=== PATIENT | female | born 1970 ===

== ENCOUNTER 2016-10-13 10:16 | Observation (INO) | payer MEDICARE, OTHER ==
[2016-10-13 10:17] VITALS: BMI 52.1
--- NOTE | 2016-10-13 10:36 | ED PDOC ---
HPI: Chest Pain Time Seen by Provider: 10/13/16 10:29 Chief Complaint (Nursing): Chest Pain Chief Complaint (Provider): palpitations History Per: Patient History/Exam Limitations: no limitations Onset/Duration Of Symptoms: Hrs Additional Complaint(s): 46yo female complaining of several episodes of palpitations for 6 hours. Also reports left arm pain and pounding sensation in left ear. States she no longer takes blood thinners. She does not take aspirin. PMD Componegre ? - Risk Factors PE Risk Factors: Pos: Previous DVT, Previous PE Past Medical History Reviewed: Historical Data, Nursing Documentation, Vital Signs Vital Signs: Last Vital Signs Temp 98.0 F 10/16/16 08:16 Pulse 64 10/16/16 09:00 Resp 20 10/16/16 08:16 BP 124/77 10/16/16 08:16 Pulse Ox 97 10/16/16 08:16 - Medical History PMH: Anxiety, Asthma, Bronchitis, CVA (2 years ago, no residual defecits), Depression, Deep Vein Thrombosis, Gastritis, GERD, Pulmonary Embolism, TIA Denies: Arthritis, CHF, COPD, Diabetes, Hepatitis, HIV, HTN, Hypercholesterolemia, Hypothyroidism, Pneumonia, Chronic Kidney Disease, Rheumatoid Arthritis, Seizures, Sexually Transmitted Disease - Surgical History Surgical History: Cholecystectomy, Tonsillectomy - Family History Family History: States: Unknown Family Hx - Living Arrangements Living Arrangements: With Family - Social History Current smoker - smoking cessation education provided: No - Immunization History Hx Tetanus Toxoid Vaccination: No Hx Influenza Vaccination: No Hx Pneumococcal Vaccination: No - Home Medications Home Medications: Ambulatory Orders Medication Instructions Recorded Aspirin [Ecotrin] 81 mg PO HS 03/10/16 Baclofen [Lioresal] 10 mg PO HS 09/16/16 Dexlansoprazole [Dexilant] 60 mg PO Q48H 09/16/16 Escitalopram [Lexapro] 10 mg PO DAILY 09/16/16 traZODone [Desyrel] 50 mg PO HS 09/16/16 Acetaminophen/Butalbital/Caf 1 tab PO TID #60 tab 10/16/16 [Fioricet] Azithromycin [Zithromax] 500 mg PO DAILY #5 tab 10/16/16 - Allergies Allergies/Adverse Reactions: Allergies Allergy/AdvReac Type Severity Reaction Status Date / Time morphine AdvReac SHORTNESS Verified 09/16/16 12:42 OF BREATH Review of Systems ROS Statement: Except As Marked, All Systems Reviewed And Found Negative Cardiovascular: Positive for: Palpitations Musculoskeletal: Positive for: Arm Pain Physical Exam - Reviewed Nursing Documentation Reviewed: Yes Vital Signs Reviewed: Yes - Physical Exam Appears: Positive for: Well, Non-toxic, No Acute Distress Head Exam: Positive for: ATRAUMATIC, NORMAL INSPECTION, NORMOCEPHALIC Skin: Positive for: Warm, Dry Eye Exam: Positive for: EOMI, PERRL Cardiovascular/Chest: Positive for: Irregularly Irregular Respiratory: Positive for: Normal Breath Sounds. Negative for: Rales, Rhonchi, Wheezing Gastrointestinal/Abdominal: Positive for: Other (obese) Extremity: Positive for: Normal ROM Neurologic/Psych: Positive for: Alert, Oriented, Other (anxious) - Laboratory Results Result Diagrams: 10/14/16 05:30 10/14/16 05:30 - ECG ECG: Positive for: Interpreted By Me, Viewed By Me ECG Rhythm: Positive for: Atrial Fibrillation (/ flutter ), Nonspecific Changes Rate: 85 O2 Sat by Pulse Oximetry: 99 (RA) Pulse Ox Interpretation: Normal Medical Decision Making Medical Decision Making: EKG demonstrates new onset afib. labs were reviewed. Pt admitted obs to tele service for cardiac workup. Disposition - Clinical Impression Clinical Impression: Atrial fibrillation, Chest pain - Patient ED Disposition Is Patient to be Admitted: Yes Counseled Patient/Family Regarding: Studies Performed, Diagnosis - Disposition Disposition Time: 14:00 Condition: GOOD - Pt Status Changed To: Hospital Disposition Of: Observation - POA Present On Arrival: None
[2016-10-13 11:21] LABS: BASO % 0.8 % (0.0-2.0); EOS # 0.6 K/uL (0.0-0.7); EOS % 11.2 % (0.0-4.0); HEMATOCRIT 38.4 % (34.0-47.0); LYMPH # 1.4 K/uL (1.0-4.3); LYMPH % 25.7 % (20.0-40.0); MEAN CELL VOLUME 83.4 fl (81.0-99.0); MEAN CORPUSCULAR HEMOGLOBIN 26.9 pg (27.0-31.0); MEAN CORPUSCULAR HGB CONC 32.2 g/dL (33.0-37.0); MEAN PLATELET VOLUME 11.2 fl (7.2-11.7); MONO # 0.3 K/uL (0.0-0.8); MONO % 5.9 % (0.0-10.0); NEUT % 56.4 % (50.0-75.0); NRBC % 0.1 % (0.0-0.0); RED CELL DISTRIBUTION WIDTH 16.6 % (11.5-14.5); WHITE BLOOD COUNT 5.4 K/uL (4.8-10.8)
[2016-10-13 11:39] LABS: PARTIAL THROMBOPLASTIN TIME 25.4 SECONDS (23.3-32.5)
[2016-10-13 11:54] LABS: ALKALINE PHOSPHATASE 73 U/L (38-126); ALT/SGPT 45 U/L (9-52); AST/SGOT 36 U/L (14-36); BILIRUBIN,TOTAL 0.6 mg/dl (0.2-1.3); BLOOD UREA NITROGEN 17 mg/dl (7-17); CALCIUM 9.2 mg/dL (8.4-10.2); CARBON DIOXIDE 28 mmol/L (22-30); CHLORIDE 104 mmol/L (98-107); GFR AFRICAN-AMERICAN > 60; GLUCOSE,RANDOM 106 mg/dL (65-105); SODIUM 143 mmol/l (132-148); TOTAL PROTEIN 7.7 G/DL (6.3-8.2)
--- NOTE | 2016-10-13 12:41 | CT ---
PROCEDURE: CT HEAD WITHOUT CONTRAST. HISTORY: Aflutter, L headache and L facial numbness COMPARISON: Comparison is made to the previous study dated 03/10/2016 TECHNIQUE: Axial computed tomography images were obtained through the head/brain without intravenous contrast. Radiation dose: Total exam DLP = 869.9 mGy-cm. This CT exam was performed using one or more of the following dose reduction techniques: Automated exposure control, adjustment of the mA and/or kV according to patient size, and/or use of iterative reconstruction technique. FINDINGS: HEMORRHAGE: No intracranial hemorrhage. BRAIN: No mass effect or edema. No atrophy or chronic microvascular ischemic changes. VENTRICLES: Unremarkable. No hydrocephalus. CALVARIUM: Unremarkable. PARANASAL SINUSES: Unremarkable as visualized. No significant inflammatory changes. MASTOID AIR CELLS: Unremarkable as visualized. No inflammatory changes. OTHER FINDINGS: None. IMPRESSION: No evidence of acute pathology or significant interval change since the previous exam P
--- NOTE | 2016-10-13 13:31 | RAD ---
HISTORY: CP COMPARISON: No prior. FINDINGS: LUNGS: Mild bibasilar atelectasis. PLEURA: No significant pleural effusion identified, no pneumothorax apparent. CARDIOVASCULAR: Heart appears enlarged. OSSEOUS STRUCTURES: No significant abnormalities. VISUALIZED UPPER ABDOMEN: Normal. OTHER FINDINGS: None. IMPRESSION: Mild bibasilar atelectasis. Cardiomegaly.
[2016-10-13] MEDS ORDERED: Sodium Chloride 0.9% 50 ML IV ONE (19:05)
[2016-10-13] MEDS ORDERED: Iodixanol 320 MG/ML 100 ML BOTTLE IV ONE (19:05)
--- NOTE | 2016-10-13 19:41 | CARD ---
APPROVED REPORT EKG Measurement Heart [id number] HI P3 [id number] <Conclusion> sinus rhythm as clearly seen in limb lead III Nonspecific T wave abnormality Prolonged QT Abnormal ECG excessive baseline artefact to read correctly-recommend repeat
--- NOTE | 2016-10-13 21:02 | CT ---
EXAM: CT Angiography Chest With Intravenous Contrast CLINICAL HISTORY: 46 years old, female; Pain and signs and symptoms; Other: New onset a-fib; Chest pain; Type not specified; Additional info: RO pe. Chest pain TECHNIQUE: Axial computed tomographic angiography images of the chest with intravenous contrast using pulmonary embolism protocol. This CT exam was performed using one or more of the following dose reduction techniques: automated exposure control, adjustment of the mA and/or kV according to patient size, and/or use of iterative reconstruction technique. MIP reconstructed images were created and reviewed. Coronal and sagittal reformatted images were created and reviewed. CONTRAST: 90 mL of [id number] administered intravenously. EXAM DATE/TIME: 10/13/2016 1:25 PM COMPARISON: CT - ANGIO CHEST PE PROTOCOL 09/16/2016 3:24:55 PM FINDINGS: Artifacts: Motion artifact degrades image quality. Streak artifact from body habitus limits evaluation Heart, aorta and Pulmonary arteries: The heart is mildly enlarged. There is no pericardial effusion.There is no aneurysm or dissection. There are no central pulmonary emboli. Allowing for streak artifact and bolus timing, there are no peripheral emboli. Lungs and pleural spaces: Trachea and main bronchi are patent. Lungs are well-inflated. There is no focal consolidation. There are no effusions. There is minimal dependent atelectasis. Mediastinum: Esophagus is not optimally demonstrated. There is no pathologic mediastinal or hilar adenopathy. Thyroid: Thyroid is only partially imaged. Bones/joints: There are degenerative changes in the osseus structures. Soft tissues: unremarkable Lymph nodes: See above. Upper abdomen: There are no acute abnormalities in the visualized portion of the abdomen. IMPRESSION: Slightly limited by motion and body habitus, no aneurysm, dissection or was
[2016-10-14 07:09] LABS: HEMATOCRIT 37.5 % (34.0-47.0); MEAN CELL VOLUME 84.4 fl (81.0-99.0); MEAN CORPUSCULAR HEMOGLOBIN 26.7 pg (27.0-31.0); MEAN CORPUSCULAR HGB CONC 31.6 g/dL (33.0-37.0); RED CELL DISTRIBUTION WIDTH 17.4 % (11.5-14.5); WHITE BLOOD COUNT 8.1 K/uL (4.8-10.8)
[2016-10-14 07:16] LABS: ALKALINE PHOSPHATASE 69 U/L (38-126); ALT/SGPT 45 U/L (9-52); AST/SGOT 31 U/L (14-36); BILIRUBIN,TOTAL 0.6 mg/dl (0.2-1.3); BLOOD UREA NITROGEN 13 mg/dl (7-17); CALCIUM 8.5 mg/dL (8.4-10.2); CARBON DIOXIDE 24 mmol/L (22-30); CHLORIDE 105 mmol/L (98-107); CHOLESTEROL 161 mg/dL (0-199); GFR AFRICAN-AMERICAN > 60; GLUCOSE,RANDOM 102 mg/dL (65-105); SODIUM 142 mmol/l (132-148); TOTAL PROTEIN 7.4 G/DL (6.3-8.2)
[2016-10-14] MEDS: Enoxaparin 80 mg Syringe SC SCH (09:12)
[2016-10-14] MEDS: Pantoprazole 20 mg EC Tab PO SCH (09:13)
--- NOTE | 2016-10-14 09:21 | CP.PCM.CON ---
History of Present Illness - History of Present Illness History of Present Illness: Full Note Dictated. Atypical chest pain No evidence of A Fib (EKG has artefacts) Obesity H/O Pulm Embolism No evidence of ACS Past Patient History - Infectious Disease Hx of Infectious Diseases: None - Past Medical History & Family History Past Medical History?: Yes - Past Social History Smoking Status: Never Smoked - CARDIAC Hx Cardiac Disorders: Yes Hx Atrial Fibrillation: Yes Hx Congestive Heart Failure: No Hx Hypercholesterolemia: No Hx Hypertension: No - PULMONARY Hx Respiratory Disorders: Yes Hx Asthma: Yes Hx Bronchitis: Yes Hx Chronic Obstructive Pulmonary Disease (COPD): No Hx Pneumonia: No Hx Pulmonary Embolism: Yes - NEUROLOGICAL Hx Neurological Disorder: Yes HX Cerebrovascular Accident: Yes (2014) Hx Seizures: No Hx Transient Ischemic Attacks (TIA): Yes (2014) - HEENT Hx HEENT Problems: No - RENAL Hx Chronic Kidney Disease: No - ENDOCRINE/METABOLIC Hx Endocrine Disorders: No Hx Hypothyroidism: No - HEMATOLOGICAL/ONCOLOGICAL Hx Blood Disorders: No Hx AIDS: No Hx Human Immunodeficiency Virus (HIV): No - INTEGUMENTARY Hx Dermatological Problems: No - MUSCULOSKELETAL/RHEUMATOLOGICAL Hx Musculoskeletal Disorders: No Hx Arthritis: No Hx Falls: Yes Hx Rheumatoid Arthritis: No - GASTROINTESTINAL Hx Gastrointestinal Disorders: Yes Hx Gastritis: Yes - GENITOURINARY/GYNECOLOGICAL Hx Genitourinary Disorders: No Hx Sexually Transmitted Disorders: No - PSYCHIATRIC Hx Psychophysiologic Disorder: Yes Hx Anxiety: Yes Hx Depression: Yes Hx Substance Use: No - SURGICAL HISTORY Hx Surgeries: Yes Hx Cholecystectomy: Yes Hx Tonsillectomy: Yes - ANESTHESIA Hx Anesthesia: Yes Hx Malignant Hyperthermia: No Has any member of the family had a problem w/ anesthesia?: No Meds Allergies/Adverse Reactions: Allergies Allergy/AdvReac Type Severity Reaction Status Date / Time morphine AdvReac SHORTNESS Verified 09/16/16 12:42 OF BREATH - Medications Medications: Current Medications Acetaminophen (Tylenol 325mg Tab) 650 mg PO Q4 PRN PRN Reason: Headache Last Admin: 10/14/16 09:11 Dose: 650 mg Aspirin (Ecotrin) 81 mg PO DAILY [facility] Enoxaparin Sodium (Lovenox) 160 mg SC DAILY [facility] PRN Reason: Protocol Last Admin: 10/14/16 09:12 Dose: 160 mg Escitalopram Oxalate (Lexapro) 10 mg PO DAILY [facility] Last Admin: 10/14/16 09:12 Dose: 10 mg Pantoprazole Sodium (Protonix Ec Tab) 20 mg PO DAILY [facility] Last Admin: 10/14/16 09:13 Dose: 20 mg Trazodone HCl (Desyrel) 50 mg PO [facility] Last Admin: 10/13/16 21:03 Dose: 50 mg Results - Vital Signs Recent Vital Signs: Last Vital Signs Temp 98 F 10/14/16 08:00 Pulse 64 10/14/16 08:00 Resp 18 10/14/16 08:00 BP 137/83 10/14/16 08:00 Pulse Ox 95 10/14/16 08:00 - Labs Result Diagrams: 10/14/16 05:30 10/14/16 05:30 Labs: Laboratory Results - last 24 hr 10/13/16 10/14/16 20:15 05:30 WBC 8.1 RBC 4.44 Hgb 11.8 L Hct 37.5 MCV 84.4 MCH 26.7 L MCHC 31.6 L RDW 17.4 H Plt Count 174 Sodium 142 Potassium 4.0 Chloride 105 Carbon Dioxide 24 Anion Gap 18 BUN 13 Creatinine 0.4 L Est GFR ( Amer) > 60 Est GFR (Non-Af Amer) > 60 Random Glucose 102 Calcium 8.5 Total Bilirubin 0.6 AST 31 ALT 45 Alkaline Phosphatase 69 Troponin I < 0.0120 < 0.0120 Total Protein 7.4 Albumin 3.7 Globulin 3.7 Albumin/Globulin Ratio 1.0 Triglycerides 71 Cholesterol 161 LDL Cholesterol Direct 101 HDL Cholesterol 37 TSH 3rd Generation 3.60
--- NOTE | 2016-10-14 11:50 | CON ---
DATE: 10/14/2016 She is hospitalized under Dr. Hyman's care in room 416, bed 2. HISTORY OF PRESENT ILLNESS: This 46-year-old female came to the hospital complaining of high epigast judie discomfort while at rest and occasional skipped beats that abruptly woke her up from sleep. She denies any racing of her heart. Also gives history of having been treated for pulmonary embolism wit h oral anticoagulation in the form of warfarin about 3-4 years back. Has never sustained a DVT and d enies recent leg pains. Denies any hemoptysis. She has never been a smoker. Denies any history of hypertension or diabetes and denies taking oral contraceptives. She indicated that she has not had a ny children. PHYSICAL EXAMINATION: GENERAL: Shows a young, extremely obese female sitting up in bed, quite comfortable at this point, a lert, awake, coherent. VITAL SIGNS: Afebrile with a pulse rate of 68 beats per minute, regular and a blood pressure of 124/ 74 mmHg. NECK: Her jugular venous pressure was difficult to evaluate because of a short thick neck. EXTREMITIES: There was no pedal edema. Pedal pulses were well felt. Her extremities are warm, nail beds are pink. No central or peripheral cyanosis was evident. HEART: The apex was not palpable. There was a mild degree of tenderness in the high epigastric area . The first and second heart sounds were normal. There was no murmur, no gallop. LUNGS: No rales. ABDOMEN: Soft. Liver and spleen were not palpable. Her electrocardiogram in the Emergency Room showed baseline artifact, but P-waves could be clearly id entified indicating that the patient did not have atrial fibrillation when this electrocardiogram was recorded. No ST-T abnormalities or Q-waves were detected. LABORATORY DATA: Three sets of cardiac enzymes were negative for any evidence of myocyte injury. He r hemoglobin and hematocrit were 12.4 g and 38.4% respectively. Her WBC count and platelet counts we re within normal limits. Her BUN and creatinine were 17 and 0.5 mg %. Her electrolytes and liver pr ofile was quite normal. Her LDL cholesterol was 101, while the HDL cholesterol was 37 mg %. Her TSH was 3.6 units which is within normal limits. IMPRESSION: At this time is atypical chest pain with no evidence of acute coronary syndrome, a histo ry of pulmonary embolism. She is stable from cardiovascular point of view and may be allowed to retu rn home. Kyle Martino MD cc: 23 TT: 10/14/2016 11:49:39 Confirmation # [id number] Dictation # [id number]
--- NOTE | 2016-10-14 11:56 | CARD ---
APPROVED REPORT EXAM: Two-dimensional and M-mode echocardiogram with Doppler and color Doppler. Other Information Quality : AverageRhythm : NSR Technically limited study due to body habitus. INDICATION Atrial Fibrillation 2D DIMENSIONS IVSd0.60 (0.7-1.1cm)LVDd4.82 (3.9-5.9cm) LVOT Diameter1.96 (1.8-2.4cm)PWd0.81 (0.7-1.1cm) IVSs1.29 (0.8-1.2cm)LVDs4.16 (2.5-4.0cm) FS (%) 13.7 %PWs1.22 (0.8-1.2cm) M-Mode DIMENSIONS Left Atrium (MM)3.53 (2.5-4.0cm)IVSd1.14 (0.7-1.1cm) Aortic Root3.42 (2.2-3.7cm)LVDd5.29 (4.0-5.6cm) Aortic Cusp Exc.2.72 (1.5-2.0cm)PWd0.92 (0.7-1.1cm) IVSs1.51 cmFS (%) 56 % LVDs2.32 (2.0-3.8cm)PWs1.36 cm Mitral Valve MV E Yflzvfhr95.0cm/sMV DECEL [id number] A Kvlixqjz45.6cm/s MV AMS05qrH/A ratio1.4MVA (PHT)3.27cm2 TDI E/Lateral E'0.0E/Medial E'0.0 LEFT VENTRICLE The left ventricle is normal size. There is normal left ventricular wall thickness. The left ventricular function is normal. The left ventricular ejection fraction is - 55-60%. There is normal LV segmental wall motion. The left ventricular diastolic function is normal. No left ventricle thrombus noted on this study. There is no ventricular septal defect visualized. There is no left ventricular aneurysm. There is no mass noted in the left ventricle. RIGHT VENTRICLE The right ventricle is normal size. There is normal right ventricular wall thickness. The right ventricular systolic function is normal. ATRIA The left atrium size is normal. There is no thrombus suspected in the left atrium. The right atrium size is normal. The interatrial septum is intact with no evidence for an atrial septal defect. AORTIC VALVE The aortic valve is normal in structure and function. No aortic regurgitation is present. There is no aortic valvular stenosis. MITRAL VALVE The mitral valve is normal in structure and function. There is no evidence of mitral valve prolapse. There is no mitral valve stenosis. Mitral regurgitation is trace. TRICUSPID VALVE The tricuspid valve is normal in structure and function. There is no tricuspid valve regurgitation noted. There is no tricuspid valve prolapse or vegetation. There is no tricuspid valve stenosis. PULMONIC VALVE The pulmonic valve is not well visualized. doppler studies of the PA were not performed GREAT VESSELS The aortic root is normal in size. The IVC was not well visualized. PERICARDIAL EFFUSION The pericardium appears normal. There is no pleural effusion. <Conclusion> The study is only of fair quality. The left ventricle is normal in size and wall thickness. The left ventricular function is normal. The left ventricular ejection fraction is - 55-60%. The left atrium, right ventricle and right atrium are normal in size. The mitral, aortic and tricuspid valves are normal. There is trace mitral regurgitation.
--- NOTE | 2016-10-14 16:05 | US ---
PROCEDURE: Duplex ultrasound of the carotid and vertebral arteries. HISTORY: Headache COMPARISON: None available. TECHNIQUE: Grayscale and duplex Doppler evaluation of the cervical carotid and vertebral arteries were performed. The common carotid, carotid bifurcations and cervical ICA and proximal ECA were evaluated. The vertebral arteries were evaluated for gross patency and direction. FINDINGS: RIGHT CAROTID ARTERIES: Common Carotid Artery: Normal. Maximal flow velocity of 98.4 cm/s. Carotid Bifurcation: Normal. Internal Carotid Artery:Normal. Maximal flow velocity of 71.0 cm/s. External Carotid Artery (proximal branches): Normal. Maximal flow velocity of 96.3 cm/s. ICA/CCA Ratio: 0.7 LEFT CAROTID ARTERIES: Common Carotid Artery: Normal. Maximal flow velocity of 137.1 cm/s. Carotid Bifurcation: Normal. Internal Carotid Artery:Normal. Maximal flow velocity of 83.3 cm/s. External Carotid Artery (proximal branches): Normal. Maximal flow velocity of 83.3 cm/s. ICA/CCA Ratio: 0.6 VERTEBRAL ARTERIES: Right Vertebral Artery: Patent. Antegrade flow. Left Vertebral Artery: Patent. Antegrade flow. OTHER FINDINGS: None. IMPRESSION: No evidence of hemodynamically significant stenosis.
[2016-10-14] MEDS ORDERED: Iodixanol 320 MG/ML 100 ML BOTTLE IV ONE ×2 (17:46→18:05)
[2016-10-14] MEDS ORDERED: Sodium Chloride 0.9% 50 ML IV ONE (17:46)
--- NOTE | 2016-10-14 22:41 | CP.PCM.HP ---
History of Present Illness - History of Present Illness History of Present Illness: A 46 yr old femALE with hx of depression,morbid obesity,old PE not on blood thinners came with c\o chest pain,mid strernal\epigastria with left arm discomfort .hx of similar episodes in past.asocited with palpitation,initial EKG -SUSPICIOUS OF AFIB. also currently c\o headaches back of head mostly.random, no specific agg factors , not relieving with regular tylenol she was diagnosed with sleep apnea[mild] not using CPAP. headaches going for a 2 weeks now.last seen eyedoctor was 3 months ago-was normal. Present on Admission - Present on Admission Any Indicators Present on Admission: No Review of Systems - Constitutional Constitutional: Fatigue, Sleep Apnea. absent: Fever - EENT Eyes: absent: Blurred Vision, Sees Flashes, Other Visual Disturbances Ears: Tinnitus Nose/Mouth/Throat: Post Nasal Drip, Sore Throat - Cardiovascular Cardiovascular: Chest Pain, Palpitations. absent: Diaphoresis, Leg Edema - Respiratory Respiratory: absent: Cough, Wheezing - Gastrointestinal Gastrointestinal: Heartburn. absent: Nausea, Vomiting - Genitourinary Genitourinary: absent: Dysuria, Urinary Frequency - Psychiatric Psychiatric: Anxiety, Depression Past Patient History - Infectious Disease Hx of Infectious Diseases: None - Past Medical History & Family History Past Medical History?: Yes - Past Social History Smoking Status: Never Smoked - CARDIAC Hx Cardiac Disorders: Yes Hx Atrial Fibrillation: Yes Hx Congestive Heart Failure: No Hx Hypercholesterolemia: No Hx Hypertension: No - PULMONARY Hx Respiratory Disorders: Yes Hx Asthma: Yes Hx Bronchitis: Yes Hx Chronic Obstructive Pulmonary Disease (COPD): No Hx Pneumonia: No Hx Pulmonary Embolism: Yes - NEUROLOGICAL Hx Neurological Disorder: Yes HX Cerebrovascular Accident: Yes (2015) Hx Seizures: No Hx Transient Ischemic Attacks (TIA): Yes (2014) - HEENT Hx HEENT Problems: No - RENAL Hx Chronic Kidney Disease: No - ENDOCRINE/METABOLIC Hx Endocrine Disorders: No Hx Hypothyroidism: No - HEMATOLOGICAL/ONCOLOGICAL Hx Blood Disorders: No Hx AIDS: No Hx Human Immunodeficiency Virus (HIV): No - INTEGUMENTARY Hx Dermatological Problems: No - MUSCULOSKELETAL/RHEUMATOLOGICAL Hx Musculoskeletal Disorders: No Hx Arthritis: No Hx Falls: Yes Hx Rheumatoid Arthritis: No - GASTROINTESTINAL Hx Gastrointestinal Disorders: Yes Hx Gastritis: Yes - GENITOURINARY/GYNECOLOGICAL Hx Genitourinary Disorders: No Hx Sexually Transmitted Disorders: No - PSYCHIATRIC Hx Psychophysiologic Disorder: Yes Hx Anxiety: Yes Hx Depression: Yes Hx Substance Use: No - SURGICAL HISTORY Hx Surgeries: Yes Hx Cholecystectomy: Yes Hx Tonsillectomy: Yes - ANESTHESIA Hx Anesthesia: Yes Hx Malignant Hyperthermia: No Has any member of the family had a problem w/ anesthesia?: No Meds Allergies/Adverse Reactions: Allergies Allergy/AdvReac Type Severity Reaction Status Date / Time morphine AdvReac SHORTNESS Verified 09/16/16 12:42 OF BREATH Physical Exam - Constitutional Appears: No Acute Distress Additional comments: obese - Head Exam Head Exam: NORMAL INSPECTION - Eye Exam Eye Exam: EOMI, Normal appearance, PERRL - ENT Exam ENT Exam: Normal Exam - Neck Exam Neck exam: Negative for: Lymphadenopathy Additional comments: tight oropharynx - Respiratory Exam Respiratory Exam: Clear to Auscultation Bilateral, NORMAL BREATHING PATTERN - Cardiovascular Exam Cardiovascular Exam: REGULAR RHYTHM, +S1, +S2 - GI/Abdominal Exam GI & Abdominal Exam: Normal Bowel Sounds, Soft. absent: Tenderness - Extremities Exam Extremities exam: Positive for: pedal pulses present. Negative for: pedal edema - Neurological Exam Neurological exam: Alert, Normal Gait, Oriented x3 - Psychiatric Exam Psychiatric exam: Normal Affect - Skin Skin Exam: Normal Color Results - Vital Signs Recent Vital Signs: Last Vital Signs Temp 98.6 F 10/14/16 20:32 Pulse 67 10/14/16 20:32 Resp 20 10/14/16 20:32 BP 108/77 10/14/16 20:32 Pulse Ox 96 10/14/16 20:32 - Labs Result Diagrams: 10/14/16 05:30 10/14/16 05:30 Labs: Laboratory Results - last 24 hr 10/14/16 10/14/16 05:30 08:25 WBC 8.1 RBC 4.44 Hgb 11.8 L Hct 37.5 MCV 84.4 MCH 26.7 L MCHC 31.6 L RDW 17.4 H Plt Count 174 Sodium 142 Potassium 4.0 Chloride 105 Carbon Dioxide 24 Anion Gap 18 BUN 13 Creatinine 0.4 L Est GFR ( Amer) > 60 Est GFR (Non-Af Amer) > 60 Random Glucose 102 Hemoglobin A1c 6.2 Calcium 8.5 Total Bilirubin 0.6 AST 31 ALT 45 Alkaline Phosphatase 69 Troponin I < 0.0120 Total Protein 7.4 Albumin 3.7 Globulin 3.7 Albumin/Globulin Ratio 1.0 Triglycerides 71 Cholesterol 161 LDL Cholesterol Direct 101 HDL Cholesterol 37 TSH 3rd Generation 3.60 - EKG Data EKG Interpreted by: Other - Imaging and Cardiology CT scan - chest Status: Report reviewed by me CT scan - head Status: Report reviewed by me Assessment & Plan (1) Chest pain Status: Acute (2) Head ache Status: Acute (3) Palpitations Status: Acute (4) Gastro-esophageal reflux disease without esophagitis Status: Chronic (5) URTI (acute upper respiratory infection) Status: Acute - Assessment and Plan (Free Text) Assessment: 1. trops\ekg-negative so far 2. possible artifact-no afib as per cardiology continue ASA 3.HEADACHE-LIKLEY SLEEP apnea related 4. for URT-zpack 5.pain meds Decision To Admit - Pt Status Changed To: Hospital Disposition Of: Inpatient - Admit Certification Admit to Inpatient:: After my assessment, the patient will require hospitalization for at least two midnights. This is because of the severity of symptoms shown, intensity of services needed, and/or the medical risk in this patient being treated as an outpatient. - . Bed Request Type: Telemetry Admitting Physician: Sammie Hyman
[2016-10-15] MEDS: Enoxaparin 80 mg Syringe SC SCH (09:15)
[2016-10-15] MEDS: Pantoprazole 20 mg EC Tab PO SCH (09:16)
--- NOTE | 2016-10-15 11:18 | CT ---
PROCEDURE: CT Angiography of the Brain. HISTORY: Headache COMPARISON: None available. TECHNIQUE: CT angiography of the intracranial arteries was performed. Coronal and sagittal maximum intensity projection reformated images were generated. This CT exam was performed using one or more of the following dose reduction techniques: Automated exposure control, adjustment of the mA and/or kV according to patient size, and/or use of iterative reconstruction technique. FINDINGS: INTERNAL CEREBRAL ARTERIES: Normal in caliber. The skull base, petrous, cavernous and supraclinoid segments are bilaterally widely patient. ANTERIOR CEREBRAL ARTERIES: Normal in caliber. The right A1 segment is hypoplastic, an anatomic variant. The left A1 and both A2 segments are widely patent. Smaller distal branches unremarkable, as visualized. MIDDLE CEREBRAL ARTERIES: Normal in caliber. M1 and M2 segments are widely patent. Perisylvian branches grossly symmetric. POSTERIOR CIRCULATION: Basilar Artery: Normal. Distal Vertebral Arteries: Normal. The left vertebral artery is dominant intracranially. Posterior Cerebral Arteries: Normal. Posterior Inferior Cerebellar Arteries: Normal. ANEURYSM/ VASCULAR MALFORMATIONS: None. OTHER FINDINGS: None. IMPRESSION: No evidence of saccular aneurysm, definite significant stenosis, vasculitis or dissection.
--- NOTE | 2016-10-15 22:30 | CP.PCM.PN ---
Subjective - Date & Time of Evaluation Date of Evaluation: 10/15/16 Time of Evaluation: 15:00 - Subjective Subjective: still c\o headaches ,notes she is worried . labs noted. chest pain resolved. [id number]-7.2, tsh-normal. Objective - Vital Signs/Intake and Output Vital Signs (last 24 hours): Temp Pulse Resp BP Pulse Ox 98.4 F 76 20 130/82 97 10/15/16 20:20 10/15/16 20:20 10/15/16 20:20 10/15/16 20:20 10/15/16 20:20 - Medications Medications: Current Medications Acetaminophen (Tylenol 325mg Tab) 650 mg PO Q4 PRN PRN Reason: Headache Last Admin: 10/14/16 09:11 Dose: 650 mg Aspirin (Ecotrin) 81 mg PO DAILY [facility] Last Admin: 10/15/16 09:16 Dose: 81 mg Azithromycin (Zithromax) 500 mg PO DAILY [facility] Last Admin: 10/15/16 09:16 Dose: 500 mg Enoxaparin Sodium (Lovenox) 160 mg SC DAILY [facility] PRN Reason: Protocol Last Admin: 10/15/16 09:15 Dose: 160 mg Escitalopram Oxalate (Lexapro) 10 mg PO DAILY [facility] Last Admin: 10/15/16 09:17 Dose: 10 mg Meclizine HCl (Antivert) 12.5 mg PO BID [facility] Last Admin: 10/15/16 17:16 Dose: 12.5 mg Pantoprazole Sodium (Protonix Ec Tab) 20 mg PO DAILY [facility] Last Admin: 10/15/16 09:16 Dose: 20 mg Trazodone HCl (Desyrel) 50 mg PO HS [facility] Last Admin: 10/15/16 21:38 Dose: 50 mg - Labs Labs: 10/14/16 05:30 10/14/16 05:30 PT 10.3 SECONDS (9.6-11.2) 10/13/16 11:07 INR 0.99 (0.92-1.08) 10/13/16 11:07 APTT 25.4 SECONDS (23.3-32.5) 10/13/16 11:07 Assessment and Plan (1) Chest pain Status: Resolved (2) Head ache Status: Acute (3) Palpitations Status: Resolved (4) Gastro-esophageal reflux disease without esophagitis Status: Chronic (5) URTI (acute upper respiratory infection) Status: Acute - Assessment and Plan (Free Text) Plan: 1. continue all meds 2.call neuroconsult 3. echo\ carotid us-wnl. 4.advise to see ENT\OPTHMOLOGY out pt.
[2016-10-16 05:16] VITALS: RESP 20
--- NOTE | 2016-10-16 08:09 | CON ---
DATE: 10/15/2016 CHIEF COMPLAINT: Headache. HISTORY OF PRESENT ILLNESS: A 46-year-old woman with history of anxiety, asthma and bronchitis, hist ory of DVT in the past and gastritis who has been having several episodes of palpitations and felt le ft arm pain and pounding sensation in the left ear. She takes aspirin and was again evaluated by car diology who recommended that her atypical chest pain showed no evidence of coronary syndrome, and fro m a cardiovascular standpoint, she was stable. Currently, we got consulted for headaches. She says the headaches usually start in the back of the neck radiating up to the back of the head, diffuse pre ssure type without any auras. Currently, no paresthesias with the headaches. No nausea. Her headac he is much better. She says it has resolved. She says when she gets stressed out she gets these hea daches. She on average gets headaches intermittently, but not more than 1 a month. She is on aspiri n 81 mg p.o. daily for stroke prevention. She is on Lexapro for her underlying anxiety, depression. PAST MEDICAL HISTORY: Depression, anxiety, history of arthritis, overweight, history of DVT in the p ast. FAMILY HISTORY: Noncontributory. SOCIAL HISTORY: No illicit drug use, smoking, or ETOH abuse. ALLERGIES: ALLERGIC TO MORPHINE. SOCIAL HISTORY: No illicit drug use, smoking, or ETOH abuse. MEDICATIONS: Reviewed via nurse's reconciliation sheet. REVIEW OF SYSTEMS: A 14-point review of systems is negative except for the HPI. PHYSICAL EXAMINATION: VITAL SIGNS: Temperature 98.1, pulse rate 71, blood pressure 109/74, respiratory rate 20, oxygen 97% on room air. GENERAL: The patient is sitting up in bed. She is obese. HEENT: Atraumatic, normocephalic. PERRLA. Extraocular muscles intact. NECK: Supple, no JVD, no adenopathy noted. LUNGS: Clear to auscultation. No adventitious sounds. HEART: S1, S2, normal rate and rhythm. No murmurs, rubs, or gallops. ABDOMEN: Soft, nontender, nondistended. Bowel sounds present. EXTREMITIES: No clubbing, no cyanosis. Peripheral pulses 2+ felt bilaterally. NEUROLOGIC: The patient is alert, oriented to person, place, month and year. Speech is fluent, with out any errors. Has a flat affect and mildly anxious. Cranial nerves II through XII are intact. MOTOR: Moves all extremities equally. No pronator drift seen. SENSORY: Light touch, pinprick, proprioception, and vibration. DTRs are 2+ throughout and 1 at the ankles. COORDINATION: [id number] intact. GAIT: Deferred for now. LABORATORIES: Sodium is 142, potassium 4, chloride of 105, carbon dioxide 24, BUN of 13, creatinine 0.4 and random glucose 128. ASSESSMENT AND PLAN: This is a 46-year-old obese woman with past medical history of anxiety, depress ion, history of previous DVT, history of asthma, anxiety, history of DVT apparently, who came in for palpitations and headache and left ear pounding sensation. There was a question rodolfo whether there w as AFib on EKG, but according to cardiology, there was no AFib and stable from a cardiovascular stand point in terms of atypical chest pain. I feel like her headaches are more tension base headaches rat her than migraine, likely from anxiety. At this time, would recommend: 1. Coenzyme Q10 400 mg p.o. b.i.d., which will help with anxiety, as well as headache prevention. 2. Riboflavin 400 mg p.o. daily for headache prevention. 3. Fioricet 1 tab p.o. q. 4 hours at acute onset of headache. We will avoid any other medicinal pre ventative agents for now. She is clinically stable from my standpoint. Can follow up as an outpatie nt. Thank you for this consult. Tung Alanis MD cc: [phone] TT: 10/15/2016 19:27:31 Confirmation # [id number] Dictation # [id number] mn 10/15/2016 19:19:46
[2016-10-16 08:17] VITALS: BP 124/77; TEMP 98
[2016-10-16] MEDS: Enoxaparin 80 mg Syringe SC SCH (08:53)
[2016-10-16] MEDS: Pantoprazole 20 mg EC Tab PO SCH (08:53)
--- NOTE | 2016-10-16 09:53 | CP.PCM.PCO ---
Assessment/Plan - Assessment/Plan Plan (Free Text): Patient seen and examined Has been seen and evaluated by Neurology, Dr Alanis for her tension headaches. Medically cleared for discharge home Patient to follow up with her PMD re Hgb a1c 6.2, will need repeat in 3 months Patient also has appointment at the mental health clinic where she follows up for her anxiety/depression rx for fioricet provided for headaches Discussed with Dr Hyman - Problems Patient Problems: Problem List (Active/Current) Problem Status Priority Diagnosed Code Head ache Acute R51 Pre-diabetes Acute R73.03 URTI (acute upper respiratory infection) Acute J06.9 Gastro-esophageal reflux disease without esophagitis Chronic K21.9 Palpitations Resolved R00.2
--- NOTE | 2016-10-16 20:52 | CP.PCM.DIS ---
Provider - Provider Date of Admission: 10/13/16 13:24 Attending physician: Sammie Hyman MD Time Spent in preparation of Discharge (in minutes): 30 Diagnosis - Discharge Diagnosis (1) Chest pain Status: Resolved (2) Head ache Status: Acute (3) Palpitations Status: Resolved (4) Gastro-esophageal reflux disease without esophagitis Status: Chronic (5) URTI (acute upper respiratory infection) Status: Acute (6) Pre-diabetes Status: Acute Hospital Course - Lab Results Lab Results: Most Recent Lab Values WBC 8.1 K/uL (4.8-10.8) 10/14/16 05:30 RBC 4.44 Mil/uL (3.80-5.20) 10/14/16 05:30 Hgb 11.8 g/dL (12.0-16.0) L 10/14/16 05:30 Hct 37.5 % (34.0-47.0) 10/14/16 05:30 MCV 84.4 fl (81.0-99.0) 10/14/16 05:30 MCH 26.7 pg (27.0-31.0) L 10/14/16 05:30 MCHC 31.6 g/dL (33.0-37.0) L 10/14/16 05:30 RDW 17.4 % (11.5-14.5) H 10/14/16 05:30 Plt Count 174 K/uL (130-400) 10/14/16 05:30 MPV 11.2 fl (7.2-11.7) 10/13/16 11:07 Neut % (Auto) 56.4 % (50.0-75.0) 10/13/16 11:07 Lymph % (Auto) 25.7 % (20.0-40.0) 10/13/16 11:07 Hart % (Auto) 5.9 % (0.0-10.0) 10/13/16 11:07 Eos % (Auto) 11.2 % (0.0-4.0) H 10/13/16 11:07 Baso % (Auto) 0.8 % (0.0-2.0) 10/13/16 11:07 Neut # 3.0 K/uL (1.8-7.0) 10/13/16 11:07 Lymph # 1.4 K/uL (1.0-4.3) 10/13/16 11:07 Hart # 0.3 K/uL (0.0-0.8) 10/13/16 11:07 Eos # 0.6 K/uL (0.0-0.7) 10/13/16 11:07 Baso # 0.0 K/uL (0.0-0.2) 10/13/16 11:07 PT 10.3 SECONDS (9.6-11.2) 10/13/16 11:07 INR 0.99 (0.92-1.08) 10/13/16 11:07 APTT 25.4 SECONDS (23.3-32.5) 10/13/16 11:07 Sodium 142 mmol/l (132-148) 10/14/16 05:30 Potassium 4.0 MMOL/L (3.6-5.0) 10/14/16 05:30 Chloride 105 mmol/L (98-107) 10/14/16 05:30 Carbon Dioxide 24 mmol/L (22-30) 10/14/16 05:30 Anion Gap 18 (10-20) 10/14/16 05:30 BUN 13 mg/dl (7-17) 10/14/16 05:30 Creatinine 0.4 mg/dL (0.7-1.2) L 10/14/16 05:30 Est GFR ( Amer) > 60 10/14/16 05:30 Est GFR (Non-Af Amer) > 60 10/14/16 05:30 POC Glucose (mg/dL) 128 mg/dL (65-110) H 10/15/16 13:24 Random Glucose 102 mg/dL (65-105) 10/14/16 05:30 Hemoglobin A1c 6.2 % (4.2-6.5) 10/14/16 08:25 Calcium 8.5 mg/dL (8.4-10.2) 10/14/16 05:30 Total Bilirubin 0.6 mg/dl (0.2-1.3) 10/14/16 05:30 AST 31 U/L (14-36) 10/14/16 05:30 ALT 45 U/L (9-52) 10/14/16 05:30 Alkaline Phosphatase 69 U/L (38-126) 10/14/16 05:30 Troponin I < 0.0120 ng/mL (0.00-0.120) 10/14/16 05:30 Total Protein 7.4 G/DL (6.3-8.2) 10/14/16 05:30 Albumin 3.7 g/dL (3.5-5.0) 10/14/16 05:30 Globulin 3.7 gm/dL (2.2-3.9) 10/14/16 05:30 Albumin/Globulin Ratio 1.0 (1.0-2.1) 10/14/16 05:30 Triglycerides 71 mg/DL (0-149) 10/14/16 05:30 Cholesterol 161 mg/dL (0-199) 10/14/16 05:30 LDL Cholesterol Direct 101 mg/dL (0-129) 10/14/16 05:30 HDL Cholesterol 37 MG/DL (30-70) 10/14/16 05:30 TSH 3rd Generation 3.60 mIU/ML (0.46-4.68) 10/14/16 05:30 - Hospital Course Hospital Course: uneventful.feels better, headaches resolving. work up negative. Discharge Exam - Head Exam Head Exam: NORMAL INSPECTION - Additional Findings Additional findings: Appears: No Acute Distress Additional comments: obese - Head Exam Head Exam: NORMAL INSPECTION - Eye Exam Eye Exam: EOMI, Normal appearance, PERRL - ENT Exam ENT Exam: Normal Exam - Neck Exam Neck exam: Negative for: Lymphadenopathy Additional comments: tight oropharynx - Respiratory Exam Respiratory Exam: Clear to Auscultation Bilateral, NORMAL BREATHING PATTERN - Cardiovascular Exam Cardiovascular Exam: REGULAR RHYTHM, +S1, +S2 - GI/Abdominal Exam GI & Abdominal Exam: Normal Bowel Sounds, Soft. absent: Tenderness - Extremities Exam Extremities exam: Positive for: pedal pulses present. Negative for: pedal edema - Neurological Exam Neurological exam: Alert, Normal Gait, Oriented x3 - Psychiatric Exam Psychiatric exam: Normal Affect - Skin Skin Exam: Normal Color Discharge Plan - Discharge Medications Prescriptions: Acetaminophen/Butalbital/Caf [Fioricet] 1 tab PO TID #60 tab Azithromycin [Zithromax] 500 mg PO DAILY #5 tab - Follow Up Plan Condition: GOOD Disposition: HOME/ ROUTINE Instructions: Atrial Fibrillation (DC), Chest Pain (DC)
[2016-10-17 16:07] VITALS: PULSE 85; O2SAT 99
== END 2016-10-16 11:15 | disposition home or self-care (01) ==
LOC: H.ER 10:16 → H.ERHOLD 13:24 → INTOOBSV 13:24 → H.TEL 16:33
PROVIDERS: ADMIT Internal Medicine; ATTEND Internal Medicine
DX: R07.89 Other chest pain (principal); Z68.43 Body mass index [BMI] 50.0-59.9, adult; J06.9 Acute upper respiratory infection, unspecified; G44.209 Tension-type headache, unspecified, not intractable; R00.2 Palpitations; K21.9 Gastro-esophageal reflux disease without esophagitis; R73.03 Prediabetes; F32.9 Major depressive disorder, single episode, unspecified; F41.9 Anxiety disorder, unspecified; M19.90 Unspecified osteoarthritis, unspecified site; E66.01 Morbid (severe) obesity due to excess calories; J45.909 Unspecified asthma, uncomplicated; Z86.711 Personal history of pulmonary embolism; Z79.01 Long term (current) use of anticoagulants
CPT/HCPCS: 36415; 70450; 70496; 71010; 71275; 80053; 80061; 81025; 82948; 83036; 84443; 84484; 85025; 85027; 85610; 85730; 93005; 93306; 93880; 99285; G0378; J1650; J1885; Q9967

== ENCOUNTER 2016-10-31 14:01 | Emergency (ER) | payer MEDICARE, OTHER ==
[2016-10-31 14:02] VITALS: BMI 52.1
[2016-10-31 14:12] VITALS: BP 157/89; PULSE 71; RESP 21; TEMP 98.3; O2SAT 98
[2016-10-31 15:16] LABS: BASO # 0.1 K/uL (0.0-0.2); BASO % 0.9 % (0.0-2.0); EOS # 0.7 K/uL (0.0-0.7); EOS % 10.5 % (0.0-4.0); HEMATOCRIT 37.1 % (34.0-47.0); LYMPH # 1.5 K/uL (1.0-4.3); LYMPH % 22.4 % (20.0-40.0); MEAN CORPUSCULAR HGB CONC 32.1 g/dL (33.0-37.0); MEAN PLATELET VOLUME 11.4 fl (7.2-11.7); MONO # 0.5 K/uL (0.0-0.8); MONO % 7.9 % (0.0-10.0); NEUT # 3.8 K/uL (1.8-7.0); NEUT % 58.3 % (50.0-75.0); RED CELL DISTRIBUTION WIDTH 16.6 % (11.5-14.5); WHITE BLOOD COUNT 6.5 K/uL (4.8-10.8)
[2016-10-31 15:32] LABS: ALB/GLOB RATIO 0.9 (1.0-2.1); ALKALINE PHOSPHATASE 67 U/L (38-126); ALT/SGPT 44 U/L (9-52); AST/SGOT 47 U/L (14-36); BILIRUBIN,TOTAL 0.7 mg/dl (0.2-1.3); BLOOD UREA NITROGEN 17 mg/dl (7-17); CALCIUM 9.1 mg/dL (8.4-10.2); CARBON DIOXIDE 26 mmol/L (22-30); CHLORIDE 103 mmol/L (98-107); GFR AFRICAN-AMERICAN > 60; GLUCOSE,RANDOM 85 mg/dL (65-105); POTASSIUM 4.1 MMOL/L (3.6-5.0); SODIUM 138 mmol/l (132-148)
--- NOTE | 2016-10-31 16:49 | ED PDOC ---
HPI: Chest Pain Time Seen by Provider: 10/31/16 14:37 Chief Complaint (Nursing): Chest Pain Chief Complaint (Provider): chest pain History Per: Patient History/Exam Limitations: no limitations Additional Complaint(s): 46yo F in ED for eval of left sided CP-noted since yesterday with radiation to left shoulder and neck with associated dizziness and anxiety. pt was admitted on 10/13/16- had negative CTA, carodid US, Chest CT, xray of chest and normal labs. Pt had MD Baldemar-cardiology and MD Zeke nuero consult-cleared by both , dx with anxiety. Pt presented to ED on 10/13/16 with same symptoms. denies nasuea vomiting fever or chlls denies ab pain or back pain. Past Medical History Reviewed: Historical Data, Nursing Documentation, Vital Signs Vital Signs: Last Vital Signs Temp 98.3 F 10/31/16 14:07 Pulse 71 10/31/16 14:07 Resp 21 10/31/16 14:07 BP 157/89 H 10/31/16 14:07 Pulse Ox 98 10/31/16 14:07 - Medical History PMH: Anxiety, Asthma, Atrial Fibrillation, Bronchitis, CVA (2 years ago, no residual defecits), Depression, Deep Vein Thrombosis, Gastritis, GERD, Pulmonary Embolism, TIA Denies: Arthritis, CHF, COPD, Diabetes, Hepatitis, HIV, HTN, Hypercholesterolemia, Hypothyroidism, Pneumonia, Chronic Kidney Disease, Rheumatoid Arthritis, Seizures, Sexually Transmitted Disease - Surgical History Surgical History: Cholecystectomy, Tonsillectomy - Family History Family History: States: Unknown Family Hx - Immunization History Hx Tetanus Toxoid Vaccination: No Hx Influenza Vaccination: No Hx Pneumococcal Vaccination: No - Home Medications Home Medications: Ambulatory Orders Medication Instructions Recorded Aspirin [Ecotrin] 81 mg PO HS 03/10/16 Baclofen [Lioresal] 10 mg PO HS 09/16/16 Dexlansoprazole [Dexilant] 60 mg PO DAILY 09/16/16 Escitalopram [Lexapro] 10 mg PO DAILY 09/16/16 traZODone [Desyrel] 50 mg PO HS 09/16/16 Acetaminophen/Butalbital/Caf 1 tab PO TID #60 tab 10/16/16 [Fioricet] - Allergies Allergies/Adverse Reactions: Allergies Allergy/AdvReac Type Severity Reaction Status Date / Time morphine AdvReac SHORTNESS Verified 10/31/16 14:07 OF BREATH BRIAN Risk Score for UA/NSTEMI - BRIAN Risk Score Age > 64: NO 3 or more CAD Risk Factors: NO Known CAD (Stenosis greater than 50%): NO Aspirin use in past 7 days: NO Severe Angina: NO EKG ST changes greater than 0.5mm: NO Positive Cardiac Marker: NO BRIAN Score: 0 Risk %: 5% Curb-65 Severity Score - CURB-65 Severity Score Confusion: No Bun >19mg/dl (>7mmol/L): No Respiratory Rate greater than/equal to 30: No Systolic BP <90 or Diastolic BP less than/equal 60mmHg: No Age >64: No Curb-65 Score: 0 Percentage 30-day mortality: 0.6% Wells Criteria for PE - Wells Criteria for Pulmonary Embolism Clinical Signs and Symptoms of DVT: No P.E is #1 Diagnosis, or Equally Likely: No Heart Rate >100: No Immobilization at least 3 days;Surgery previous 4 weeks: No Previous, objectively diagnosed PE or DVT: No Hemoptysis: No Malignancy w/treatment within 6 months, or palliative: No Total Score: 0 Review of Systems ROS Statement: Except As Marked, All Systems Reviewed And Found Negative Cardiovascular: Positive for: Chest Pain. Negative for: Palpitations Musculoskeletal: Positive for: Neck Pain, Shoulder Pain Physical Exam - Reviewed Nursing Documentation Reviewed: Yes Vital Signs Reviewed: Yes - Physical Exam Appears: Positive for: Non-toxic, No Acute Distress Head Exam: Positive for: ATRAUMATIC, NORMAL INSPECTION, NORMOCEPHALIC Skin: Positive for: Normal Color, Warm, DRY Eye Exam: Positive for: EOMI, Normal appearance, PERRL Neck: Positive for: Normal, Painless ROM, Supple. Negative for: Decreased ROM, Limited ROM Cardiovascular/Chest: Positive for: Regular Rate, Rhythm Respiratory: Positive for: CNT, Normal Breath Sounds Gastrointestinal/Abdominal: Positive for: Normal Exam, Bowel Sounds, Soft Back: Positive for: Normal Inspection Extremity: Positive for: Normal ROM Neurologic/Psych: Positive for: Alert, Oriented - Laboratory Results Result Diagrams: 10/31/16 14:55 10/31/16 14:55 - ECG ECG Rhythm: Positive for: Normal QRS, Normal ST Segment, Sinus Rhythm O2 Sat by Pulse Oximetry: 98 - Progress ED Course And Treament: pt will need cardiac workup- EKG, troponin and considering hx of PE/DVT a d-dimer. Re-evaluation Time: 16:58 Condition: Re-examined (stable) Medical Decision Making Medical Decision Making: case discussed with MD Felipe-considering pt has received extensive work up as an inpt and no acute findings in ED. pt has had cardiology f.u and is pending holter monitor approval from insurance. at this time pt is safe fro d/c VS are still stable. and t well appearing pt understands the need for cardiology f.u and will be given concreinge information to assist. pt will be rx flexril and motrin for probable muscle spasm. Disposition - Clinical Impression Clinical Impression: Chest wall pain - Patient ED Disposition Is Patient to be Admitted: No Counseled Patient/Family Regarding: Studies Performed, Diagnosis, Need For Followup, Rx Given - Disposition Referrals: [facility] [Outside] Disposition: Routine/Home Disposition Time: 17:02 Condition: STABLE Instructions: Chest Pain (ED) Print Language: SLOVENIAN
--- NOTE | 2016-11-03 18:59 | CARD ---
APPROVED REPORT EKG Measurement Heart [id number] <Conclusion> Normal sinus rhythm Minimal voltage criteria for LVH, may be normal variant Borderline ECG
== END 2016-10-31 18:07 | disposition home or self-care (01) ==
LOC: H.ER 14:01
DX: R07.89 Other chest pain (principal)

== ENCOUNTER 2016-12-17 17:23 | Observation (INO) | payer MEDICARE, OTHER ==
[2016-12-17 17:23] VITALS: BMI 52.1
--- NOTE | 2016-12-17 18:07 | ED PDOC ---
HPI: Chest Pain Time Seen by Provider: 12/17/16 17:44 Chief Complaint (Nursing): Chest Pain History Per: Patient (Palpitations assoc with SOB since yesterday. H/o PE with similar sxs then. PE was 4 years ago and is now off Coumadin. Also c/o pain and swelling rectal area which opened and drained yesterday. No fever.) Onset/Duration Of Symptoms: Days (2) Current Symptoms Are (Timing): Intermittent Episodes Severity: Mild Quality: Other (Palpitations) Modifying Factors: None Exacerbating Factors: None Alleviating Factors: None - Risk Factors PE Risk Factors: Pos: Previous PE Past Medical History Vital Signs: Last Vital Signs Temp 97.7 F 12/18/16 07:58 Pulse 66 12/18/16 07:58 Resp 18 12/18/16 07:58 BP 107/71 12/18/16 07:58 Pulse Ox 98 12/18/16 07:58 - Medical History PMH: Anxiety, Asthma, Atrial Fibrillation, Bronchitis, CVA (2 years ago, no residual defecits), Depression, Deep Vein Thrombosis, Gastritis, GERD, Pulmonary Embolism, TIA Denies: Arthritis, CHF, COPD, Diabetes, Hepatitis, HIV, HTN, Hypercholesterolemia, Hypothyroidism, Pneumonia, Chronic Kidney Disease, Rheumatoid Arthritis, Seizures, Sexually Transmitted Disease - Surgical History Surgical History: Cholecystectomy, Tonsillectomy - Family History Family History: States: Unknown Family Hx - Immunization History Hx Tetanus Toxoid Vaccination: No Hx Influenza Vaccination: No Hx Pneumococcal Vaccination: No - Home Medications Home Medications: Ambulatory Orders Medication Instructions Recorded Aspirin [Ecotrin] 81 mg PO HS 03/10/16 Baclofen [Lioresal] 10 mg PO HS 09/16/16 Dexlansoprazole [Dexilant] 60 mg PO DAILY 09/16/16 Escitalopram [Lexapro] 10 mg PO DAILY 09/16/16 traZODone [Desyrel] 50 mg PO HS 09/16/16 Cyclobenzaprine [Cyclobenzaprine 10 mg PO BID #14 tab 10/31/16 HCl] - Allergies Allergies/Adverse Reactions: Allergies Allergy/AdvReac Type Severity Reaction Status Date / Time morphine AdvReac SHORTNESS Verified 10/31/16 14:07 OF BREATH Review of Systems ROS Statement: Except As Marked, All Systems Reviewed And Found Negative Constitutional: Negative for: Fever Cardiovascular: Positive for: Palpitations Respiratory: Positive for: Shortness of Breath Physical Exam - Reviewed Nursing Documentation Reviewed: Yes Vital Signs Reviewed: Yes - Physical Exam Appears: Positive for: Non-toxic, No Acute Distress Head Exam: Positive for: ATRAUMATIC, NORMAL INSPECTION, NORMOCEPHALIC Skin: Positive for: Normal Color, Warm, DRY Eye Exam: Positive for: EOMI, Normal appearance, PERRL ENT: Positive for: Normal ENT Inspection Neck: Positive for: Normal, Painless ROM Cardiovascular/Chest: Positive for: Regular Rate, Rhythm Respiratory: Positive for: CNT, Normal Breath Sounds Gastrointestinal/Abdominal: Positive for: Normal Exam, Bowel Sounds, Soft Back: Positive for: Normal Inspection Rectal: Positive for: Other (draining abscess right perirectal area) Extremity: Positive for: Normal ROM. Negative for: Calf Tenderness, Swelling Neurologic/Psych: Positive for: Alert, Oriented - Laboratory Results Result Diagrams: 12/17/16 18:13 12/17/16 18:13 - ECG O2 Sat by Pulse Oximetry: 98 Disposition - Clinical Impression Clinical Impression: Dyspnea, Chest pain - Patient ED Disposition Is Patient to be Admitted: Transfer of Care - Disposition Disposition: Transfer of Care Disposition Time: 00:00 Condition: STABLE Patient Signed Over To: Amol Kurtz
[2016-12-17 18:28] LABS: BASO # 0.1 K/uL (0.0-0.2); EOS # 0.8 K/uL (0.0-0.7); HEMATOCRIT 38.9 % (34.0-47.0); LYMPH # 1.6 K/uL (1.0-4.3); LYMPH % 24.5 % (20.0-40.0); MEAN CELL VOLUME 83.6 fl (81.0-99.0); MEAN CORPUSCULAR HEMOGLOBIN 26.7 pg (27.0-31.0); MEAN CORPUSCULAR HGB CONC 31.9 g/dL (33.0-37.0); MEAN PLATELET VOLUME 11.7 fl (7.2-11.7); MONO # 0.4 K/uL (0.0-0.8); MONO % 6.3 % (0.0-10.0); NEUT # 3.8 K/uL (1.8-7.0); NEUT % 56.2 % (50.0-75.0); RED CELL DISTRIBUTION WIDTH 16.4 % (11.5-14.5); WHITE BLOOD COUNT 6.7 K/uL (4.8-10.8)
[2016-12-17 18:43] LABS: ALB/GLOB RATIO 1.1 (1.0-2.1); ALKALINE PHOSPHATASE 70 U/L (38-126); ALT/SGPT 48 U/L (9-52); AST/SGOT 30 U/L (14-36); BILIRUBIN,TOTAL 0.4 mg/dl (0.2-1.3); BLOOD UREA NITROGEN 16 mg/dl (7-17); CALCIUM 9.5 mg/dL (8.4-10.2); CARBON DIOXIDE 27 mmol/L (22-30); CHLORIDE 102 mmol/L (98-107); GFR AFRICAN-AMERICAN > 60; GLUCOSE,RANDOM 106 mg/dL (65-105); POTASSIUM 3.8 MMOL/L (3.6-5.0); SODIUM 141 mmol/l (132-148)
[2016-12-18] MEDS ORDERED: Enoxaparin 150 mg Syringe SC STA (01:52)
--- NOTE | 2016-12-18 02:36 | ED PDOC ---
- Laboratory Results Result Diagrams: 12/17/16 18:13 12/17/16 18:13 - ECG O2 Sat by Pulse Oximetry: 100 Medical Decision Making Medical Decision Makin Transfer of care of patient from Dr. Peña to me pending CT. 0200 Radiology called, contrast bolus was missed, limited evaluation for PE. No evidence of right heart strain or saddle embolus. Given that the patient is complaining of previous PE symptoms, will VQ scan in the morning and will given Lovenox. Will treat patient for abscess with Clindamycin. 0215 Dr. Hyman's census is capped and stated that patient should be admitted to hospitalist service. Scribe Attestation: Documented by Maria Luisa Haile acting as a scribe for Amol Kurtz MD. Scribe Attestation: All medical record entries made by the Scribe were at my direction and personally dictated by me. I have reviewed the chart and agree that the record accurately reflects my personal performance of the history, physical exam, medical decision making, and the department course for this patient. I have also personally directed, reviewed, and agree with the discharge instructions and disposition. Disposition - Clinical Impression Clinical Impression: Dyspnea, Chest pain - POA Present On Arrival: None - Disposition Disposition: Hospitalized as Observation Patient Disposition Time: 02:00 Condition: STABLE
--- NOTE | 2016-12-18 03:53 | CP.PCM.HP ---
History of Present Illness - History of Present Illness History of Present Illness: PCP: Bess Mckoy MD Chief Complaint: Chest Pain HPI: 46 years old female with hx of being morbid obese, CVA, A fib not on Coumadin, Pre-diabetes and PE, comes with 2 days of palpitation and one day of sudden unset of a Pinching type of left sided chest pain radiating to the back. The pain is intermittent and occurring at rest or on exertion, and is associated with SOB at time of pain and nausea.This pain is similar as when she had PE 4 years prior. At that time she was treated with Lovenox then Coumadin for 8 months. She also refers pain to the intergluteous region which later had draining of Pus. PMH: Anxiety, Depression; Asthma, Bronchitis; A Fib not on Coumadin; TIA and CVA (2 years ago, no residual defecits); Gastritis, GERD; Pulmonary Embolism, Pre Diabetes; Mild ZEHRA not on CPAP PSH: Cholecystectomy, Tonsillectomy FH: Mother with Stomach cancer and PE/DVT Father with Pancreatic Cancer SH: Never smoked; No illegal drugs; No alcohol use; Live with family; Not working Allergies: Morphine Present on Admission - Present on Admission Any Indicators Present on Admission: No History of DVT/PE: No History of Uncontrolled Diabetes: No Urinary Catheter: No Decubitus Ulcer Present: No Review of Systems - Constitutional Constitutional: Chills. absent: Anorexia, Fatigue, Fever, Headache, Lethargy, Weakness - EENT Eyes: absent: Diplopia, Photophobia, Requires Corrective Lenses, Sees Flashes Ears: absent: Decreased Hearing, Ear Discharge, Ear Pain, Tinnitus Nose/Mouth/Throat: absent: Epistaxis, Nasal Congestion, Nasal Discharge, Sinus Pain, Sinus Pressure Additional comments: Left eye twitching - Cardiovascular Cardiovascular: Chest Pain, Dyspnea. absent: Diaphoresis, Edema Additional comments: Pinching type of left chest pain at rest radiating to the back - Respiratory Respiratory: Dyspnea. absent: Cough, Wheezing, Stridor, Chest Congestion - Gastrointestinal Gastrointestinal: Nausea. absent: Abdominal Pain, Constipation, Diarrhea, Vomiting Additional comments: Intragluteal pain - Genitourinary Genitourinary: absent: Dysuria, Flank Pain, Hematuria, Urinary Frequency - Musculoskeletal Musculoskeletal: absent: Arthralgias, Back Pain, Muscle Weakness, Numbness - Integumentary Integumentary: absent: Pruritus, Rash Additional comments: Intergluteal abscess - Neurological Neurological: absent: Confusion, Focal Weakness, Headaches, Loss of Vision, Vertigo, Weakness - Psychiatric Psychiatric: Anxiety, Depression. absent: Confusion, Irritability, Memory Loss - Endocrine Endocrine: absent: Palpitations, Polydipsia, Polyphagia, Polyuria - Hematologic/Lymphatic Hematologic: absent: Easy Bleeding, Easy Bruising Past Patient History - Infectious Disease Hx of Infectious Diseases: None - Past Medical History & Family History Past Medical History?: Yes - Past Social History Smoking Status: Never Smoked Chewing Tobacco Use: No Cigar Use: No Alcohol: None Drugs: Denies Home Situation {Lives}: With Family - CARDIAC Hx Atrial Fibrillation: Yes Hx Congestive Heart Failure: No Hx Hypercholesterolemia: No Hx Hypertension: No - PULMONARY Hx Asthma: Yes Hx Bronchitis: Yes Hx Chronic Obstructive Pulmonary Disease (COPD): No Hx Pneumonia: No Hx Pulmonary Embolism: Yes - NEUROLOGICAL Hx Seizures: No Hx Transient Ischemic Attacks (TIA): Yes - HEENT Hx HEENT Problems: No - RENAL Hx Chronic Kidney Disease: No - ENDOCRINE/METABOLIC Hx Endocrine Disorders: No Hx Hypothyroidism: No - HEMATOLOGICAL/ONCOLOGICAL Hx Human Immunodeficiency Virus (HIV): No - INTEGUMENTARY Hx Dermatological Problems: No - MUSCULOSKELETAL/RHEUMATOLOGICAL Hx Arthritis: No Hx Rheumatoid Arthritis: No - GASTROINTESTINAL Hx Gastritis: Yes Hx Gastroesophageal Reflux: Yes - GENITOURINARY/GYNECOLOGICAL Hx Genitourinary Disorders: No Hx Sexually Transmitted Disorders: No - PSYCHIATRIC Hx Anxiety: Yes Hx Depression: Yes Hx Substance Use: No - SURGICAL HISTORY Hx Cholecystectomy: Yes Hx Tonsillectomy: Yes - ANESTHESIA Hx Anesthesia: Yes Hx Malignant Hyperthermia: No Meds Allergies/Adverse Reactions: Allergies Allergy/AdvReac Type Severity Reaction Status Date / Time morphine AdvReac SHORTNESS Verified 10/31/16 14:07 OF BREATH Physical Exam - Constitutional Appears: No Acute Distress - Head Exam Head Exam: ATRAUMATIC, NORMAL INSPECTION, NORMOCEPHALIC - Eye Exam Eye Exam: EOMI, Normal appearance Pupil Exam: NORMAL ACCOMODATION, PERRL - ENT Exam ENT Exam: Mucous Membranes Moist, Normal Exam, Normal External Ear Exam, Normal Oropharynx - Neck Exam Neck exam: Positive for: Full Rom, Normal Inspection. Negative for: Tenderness - Respiratory Exam Respiratory Exam: Clear to Auscultation Bilateral. absent: Rales, Rhonchi, Wheezes - Cardiovascular Exam Cardiovascular Exam: REGULAR RHYTHM, RRR, +S1, +S2. absent: Gallop, JVD - GI/Abdominal Exam GI & Abdominal Exam: absent: Mass, Organomegaly Additional comments: Obese, Soft Non-tender, +ve bowel sounds. - Rectal Exam Rectal Exam: Deferred - Extremities Exam Extremities exam: Positive for: full ROM, normal inspection. Negative for: pedal edema Additional comments: Mild pain to the right calf - Back Exam Back exam: NORMAL INSPECTION. absent: CVA tenderness (L), CVA tenderness (R) - Neurological Exam Neurological exam: Alert, CN II-XII Intact, Oriented x3, Reflexes Normal - Psychiatric Exam Psychiatric exam: Normal Affect, Normal Mood - Skin Skin Exam: Dry, Warm Additional comments: Righjt intergluteal region with an erythematous patch of 2cm the longest diameter. Not flocculent and no significant tenderness Results - Vital Signs Recent Vital Signs: Last Vital Signs Temp 98.3 F 12/18/16 03:44 Pulse 72 12/18/16 03:44 Resp 14 12/18/16 03:44 BP 122/63 12/18/16 03:44 Pulse Ox 100 12/18/16 03:44 - Labs Result Diagrams: 12/17/16 18:13 12/17/16 18:13 Labs: HbA1c- 6.2 on 10/14/16 - EKG Data EKG comments: NSR 75/min - Imaging and Cardiology CTA Chest Status: Report reviewed by me Additional comment: No Saddle or proximal pulmonary embolus in the main pulmonary arteries, with evaluation profoundly limited even to the lobar level, cannot exclude emboli on the present study. Lungs clear, no findings to suggest right heart strain, no thoracic aortic aneurysm or dissection. Assessment & Plan - Assessment and Plan (Free Text) Assessment: #. R/O PE #. Intragluteal Abscess #. Anxiety /depressive disorder #. GERD #. Pre diabetes Plan: 46 years old female with hx of being morbid obese, CVA, A fib not on Coumadin, Pre-diabetes and PE, comes with 2 days of palpitation and one day of sudden unset of a Pinching type of intermittent left sided chest pain radiating to the back and occurring at rest. Associated with SOB at time of pain and nausea. She also refers pain to the intergluteous region which later had draining of Pus. #. R/O PE in patient with similar type of chest pain as when she last had PE, hx of mother dying from PE, Elevated D- Dimer but with CTA chest cannot exclude Pulmonary Emboli - follow V/Q Scan - Duplex Ultra sound of the lower extremities - Serial Troponin - consult Dr Martino Hematology - Start Sub Q therapeutic Lovenox 150mg Q12H. DC if V/Q Scan is negative #. Palpitation - Patient scared to take Metoprolol because her BP Dropped - Observe in Telemetry with cardiac monitoring - Consult Dr Zapien cardiology - Serial EKG #. Intragluteal Abscess which has ruptured - consult Wound care nurse - Clindamycin 600mg [id number] #. Anxiety /depressive disorder - Lexapro/desyrel #. GERD - Pantoprazole #. Pre diabetes - diabetic diet - HbA1c 6.2 in 10/13/16 #. DVT prophylaxis. Pte on Lovenox #. Code Status: Full - Date & Time Date: 12/18/16 Time: 03:52
[2016-12-18 07:59] VITALS: RESP 18
[2016-12-18] MEDS ORDERED: Enoxaparin 150 mg Syringe SC SCH (09:00)
[2016-12-18 10:00] LABS: PARTIAL THROMBOPLASTIN TIME 41.5 Seconds (25.6-37.1)
[2016-12-18] MEDS ORDERED: Pantoprazole 40 mg EC Tab PO SCH (10:45)
--- NOTE | 2016-12-18 10:59 | US ---
PROCEDURE: Bilateral lower extremity venous duplex Doppler. HISTORY: Pulmonary embolism COMPARISON: None available. TECHNIQUE: Bilateral common femoral, superficial femoral, popliteal and posterior tibial veins were evaluated. Flow was assessed with color Doppler, compressibility, assessment of phasic flow and augmentation response. FINDINGS: COMMON FEMORAL VEIN: Right CFV: Unremarkable. Left CFV: Unremarkable. SUPERFICIAL FEMORAL VEIN: Right SFV: Unremarkable. Left SFV: Unremarkable. POPLITEAL VEIN: Right Popliteal: Unremarkable. Left Popliteal: Unremarkable. POSTERIOR TIBIAL VEIN: Right PTV: Unremarkable. Left PTV: Unremarkable. OTHER FINDINGS: None. IMPRESSION: No evidence of deep venous thrombosis in the right or left lower extremity. .
--- NOTE | 2016-12-18 15:01 | NM ---
COMPARISON: Pulmonary ventilation and perfusion scan TECHNIQUE: 51.8 mCi mCi technetium 99-m DTPA aerosol inhaled. 7.300 mCi mCI technetium 99-m MAA administered intravenously. FINDINGS: VENTILATION COMPONENT: No ventilatory defect. PERFUSION COMPONENT: No perfusion defect. IMPRESSION: Normal scan. No evidence of pulmonary embolism.
--- NOTE | 2016-12-18 15:39 | CP.PCM.DIS ---
Provider - Provider Date of Admission: 12/18/16 02:02 Attending physician: Jared Lu Primary care physician: Dr. Ranjan Kellogg Time Spent in preparation of Discharge (in minutes): 20 Hospital Course - Lab Results Lab Results: Most Recent Lab Values WBC 6.7 K/uL (4.8-10.8) 12/17/16 18:13 RBC 4.65 Mil/uL (3.80-5.20) 12/17/16 18:13 Hgb 12.4 g/dL (12.0-16.0) 12/17/16 18:13 Hct 38.9 % (34.0-47.0) 12/17/16 18:13 MCV 83.6 fl (81.0-99.0) 12/17/16 18:13 MCH 26.7 pg (27.0-31.0) L 12/17/16 18:13 MCHC 31.9 g/dL (33.0-37.0) L 12/17/16 18:13 RDW 16.4 % (11.5-14.5) H 12/17/16 18:13 Plt Count 236 K/uL (130-400) 12/17/16 18:13 MPV 11.7 fl (7.2-11.7) 12/17/16 18:13 Neut % (Auto) 56.2 % (50.0-75.0) 12/17/16 18:13 Lymph % (Auto) 24.5 % (20.0-40.0) 12/17/16 18:13 [place] % (Auto) 6.3 % (0.0-10.0) 12/17/16 18:13 Eos % (Auto) 12.0 % (0.0-4.0) H 12/17/16 18:13 Baso % (Auto) 1.0 % (0.0-2.0) 12/17/16 18:13 Neut # 3.8 K/uL (1.8-7.0) 12/17/16 18:13 Lymph # 1.6 K/uL (1.0-4.3) 12/17/16 18:13 [place] # 0.4 K/uL (0.0-0.8) 12/17/16 18:13 Eos # 0.8 K/uL (0.0-0.7) H 12/17/16 18:13 Baso # 0.1 K/uL (0.0-0.2) 12/17/16 18:13 PT 12.8 Seconds (9.8-13.1) 12/18/16 05:00 INR 1.1 (0.9-1.2) 12/18/16 05:00 APTT 41.5 Seconds (25.6-37.1) H 12/18/16 05:00 D-Dimer, Quantitative 469 ng/mlDDU (0-243) H 12/17/16 18:13 Sodium 141 mmol/l (132-148) 12/17/16 18:13 Potassium 3.8 MMOL/L (3.6-5.0) 12/17/16 18:13 Chloride 102 mmol/L (98-107) 12/17/16 18:13 Carbon Dioxide 27 mmol/L (22-30) 12/17/16 18:13 Anion Gap 16 (10-20) 12/17/16 18:13 BUN 16 mg/dl (7-17) 12/17/16 18:13 Creatinine 0.5 mg/dL (0.7-1.2) L 12/17/16 18:13 Est GFR ( Amer) > 60 12/17/16 18:13 Est GFR (Non-Af Amer) > 60 12/17/16 18:13 Random Glucose 106 mg/dL (65-105) H 12/17/16 18:13 Calcium 9.5 mg/dL (8.4-10.2) 12/17/16 18:13 Total Bilirubin 0.4 mg/dl (0.2-1.3) 12/17/16 18:13 AST 30 U/L (14-36) 12/17/16 18:13 ALT 48 U/L (9-52) 12/17/16 18:13 Alkaline Phosphatase 70 U/L (38-126) 12/17/16 18:13 Troponin I < 0.0120 ng/mL (0.00-0.120) 12/18/16 12:51 Total Protein 8.0 G/DL (6.3-8.2) 12/17/16 18:13 Albumin 4.2 g/dL (3.5-5.0) 12/17/16 18:13 Globulin 3.7 gm/dL (2.2-3.9) 12/17/16 18:13 Albumin/Globulin Ratio 1.1 (1.0-2.1) 12/17/16 18:13 - Hospital Course Hospital Course: 46 years old female with hx of being morbid obese, CVA, A fib not on Coumadin, Pre-diabetes and PE, comes with 2 days of palpitation and one day of sudden unset of a Pinching type of intermittent left sided chest pain radiating to the back and occurring at rest. Associated with SOB at time of pain and nausea. She also refers pain to the inter gluteus region which later had draining of Pus. Patient was placed under observation in telemetry to rule out PE and ACS She was started empirically on heparin IV CTA chest and V/q scan showed no PE or acute lung pathology. Venous doppler showed no DVT troponins cycled x 3 were negative , EKG and telemetry showed no arrythmias Patient hemodynamically stable, afebrile, with no chest pain or SOB at present , saturating 100 % in RA Will discharge patient home with follow up with Dr. Brantley for Holter monitoring for her palpitations and with her PMD Wound care consult and care for intra gluteal abscess appreciated Patient will be discharged on Po Clindamycin for 7 day s and topical silver nitrate gauze application to the area. DX 1. PE and ACS ruled out 2.History PE 3.Obesity 4.palpittaions of unclear etiology 5.Intracgluteal abscess 6.Anxiety/ depressive disorder 7.GERD 8.Pre diabetic Discharge Exam - Head Exam Head Exam: ATRAUMATIC, NORMAL INSPECTION, NORMOCEPHALIC Additional comments: obese - Eye Exam Eye Exam: EOMI, Normal appearance, PERRL Pupil Exam: NORMAL ACCOMODATION - ENT Exam ENT Exam: Mucous Membranes Moist, Normal Exam - Neck Exam Neck exam: Full Rom, Normal Inspection - Respiratory Exam Respiratory Exam: Clear to PA & Lateral, NORMAL BREATHING PATTERN. absent: Rales, Rhonchi, Wheezes - Cardiovascular Exam Cardiovascular Exam: REGULAR RHYTHM, RRR, +S1, +S2. absent: JVD - GI/Abdominal Exam GI & Abdominal Exam: Normal Bowel Sounds, Soft. absent: Distended, Guarding, Rebound, Tenderness - Rectal Exam Rectal Exam: Deferred - Extremities Exam Extremities exam: normal capillary refill, normal inspection, pedal pulses present - Back Exam Back exam: NORMAL INSPECTION - Neurological Exam Neurological exam: Alert, CN II-XII Intact, Oriented x3, Reflexes Normal - Psychiatric Exam Psychiatric exam: Normal Affect, Normal Mood - Skin Skin Exam: Dry, Intact, Normal Color, Warm Discharge Plan - Discharge Medications Prescriptions: Clindamycin [Cleocin] 300 mg PO TID #21 tab - Follow Up Plan Condition: STABLE Disposition: HOME/ ROUTINE Patient education suggested?: Yes Referrals: Jong Brantley MD [Staff Provider] -
[2016-12-18 16:01] VITALS: BP 109/66; PULSE 64; TEMP 98.1; O2SAT 96
--- NOTE | 2016-12-19 07:23 | CARD ---
APPROVED REPORT EKG Measurement Heart [id number] 130P4 [id number] <Conclusion> Normal sinus rhythm Normal ECG
--- NOTE | 2016-12-19 07:28 | CARD ---
APPROVED REPORT EKG Measurement Heart [id number] 128P-7 [id number] <Conclusion> Normal sinus rhythm Normal ECG
== END 2016-12-18 16:45 | disposition home or self-care (01) ==
LOC: H.ER 17:23 → H.ERHOLD 12-18 02:02 → H.TEL 12-18 04:20
PROVIDERS: ADMIT Internal Medicine; ATTEND Internal Medicine
DX: R07.9 Chest pain, unspecified (principal); E66.9 Obesity, unspecified; Z68.43 Body mass index [BMI] 50.0-59.9, adult; R73.03 Prediabetes; G47.33 Obstructive sleep apnea (adult) (pediatric); K21.9 Gastro-esophageal reflux disease without esophagitis; K29.70 Gastritis, unspecified, without bleeding; Z86.73 Personal history of transient ischemic attack (TIA), and cerebral infarction without residual deficits; Z86.711 Personal history of pulmonary embolism; I48.91 Unspecified atrial fibrillation; F41.9 Anxiety disorder, unspecified; F32.9 Major depressive disorder, single episode, unspecified; J45.909 Unspecified asthma, uncomplicated; R00.2 Palpitations; Z88.5 Allergy status to narcotic agent; L02.31 Cutaneous abscess of buttock
CPT/HCPCS: 78582; 80053; 81025; 83036; 84484; 85025; 85378; 85610; 85730; 93005; 93970; 96372; 99285; A9524; A9567; G0378; J1650

== ENCOUNTER 2017-02-10 02:51 | Observation (INO) | payer MEDICARE, OTHER ==
[2017-02-10 03:06] VITALS: BMI 53.1
[2017-02-10 03:42] LABS: BASO # 0.1 K/uL (0.0-0.2); BASO % 0.7 % (0.0-2.0); EOS # 0.8 K/uL (0.0-0.7); EOS % 8.1 % (0.0-4.0); HEMATOCRIT 37.4 % (34.0-47.0); LYMPH # 2.1 K/uL (1.0-4.3); LYMPH % 21.4 % (20.0-40.0); MEAN CELL VOLUME 82.6 fl (81.0-99.0); MEAN CORPUSCULAR HGB CONC 32.7 g/dL (33.0-37.0); MEAN PLATELET VOLUME 11.3 fl (7.2-11.7); MONO # 0.6 K/uL (0.0-0.8); MONO % 6.3 % (0.0-10.0); NEUT # 6.2 K/uL (1.8-7.0); NEUT % 63.5 % (50.0-75.0); NRBC % 0.3 % (0.0-0.0); WHITE BLOOD COUNT 9.8 K/uL (4.8-10.8)
[2017-02-10 03:51] LABS: ALB/GLOB RATIO 1.1 (1.0-2.1); ALKALINE PHOSPHATASE 64 U/L (38-126); ALT/SGPT 54 U/L (9-52); AST/SGOT 28 U/L (14-36); BILIRUBIN,TOTAL 0.5 mg/dl (0.2-1.3); BLOOD UREA NITROGEN 18 mg/dl (7-17); CALCIUM 9.1 mg/dL (8.4-10.2); CARBON DIOXIDE 20 mmol/L (22-30); CHLORIDE 107 mmol/L (98-107); GFR AFRICAN-AMERICAN > 60; GLUCOSE,RANDOM 112 mg/dL (65-105); POTASSIUM 4.1 MMOL/L (3.6-5.0); SODIUM 139 mmol/l (132-148); TOTAL PROTEIN 7.2 G/DL (6.3-8.2)
[2017-02-10 03:58] LABS: RBC URINE 3 /hpf (0-3); URINE BILIRUBIN NEGATIVE (NEGATIVE); URINE BLOOD NEGATIVE (NEGATIVE); URINE COLOR YELLOW (YELLOW); URINE GLUCOSE (UA) NEG (Normal); URINE KETONE NEGATIVE (NEGATIVE); URINE LEUKOCYTE ESTERASE TRACE Leu/uL (Negative); URINE PROTEIN 30 mg/dL (NEGATIVE); URINE UROBILINOGEN 0.2-1.0 mg/dL (0.2-1.0); WBC URINE 7 /hpf (0-5)
--- NOTE | 2017-02-10 04:14 | ED PDOC ---
HPI: SOB/CHF/COPD Time Seen by Provider: 02/10/17 03:22 Chief Complaint (Nursing): Shortness Of Breath Chief Complaint (Provider): Chest pressure History Per: Patient History/Exam Limitations: no limitations Associated Symptoms: Chest Pain. denies: Fever, Chills, Sweating, Bloody Cough , Productive Cough, Heart Racing, Leg/Calf Pain, Ankle/Leg Swelling, Dizziness, Light-headedness, Anxiety, Tingling In Hands Or Face, Musle Spasms In Hands Or Feet Additional Complaint(s): 89yo F in ED for eval of 3d of chest pressure noted midsternal with associated palpitations and radiation of pain to the back. Pt admits to neck pain and facial pain along side Chest pain. pt denies Chest pain, denies abdominal pain arm numbness, SOB. hx of elevated D-Dimer in the past. pt states that she f/u with pulmonolgist states she had a nodule, no PE. - Risk Factors PE Risk Factors: Neg: Extremity Immobilization/Fx, Decreased Mobilty /Activity, Recent Hospitalization, Active Cancer, Previous DVT, Previous PE, CHF, Venous Stasis, Estrogen Usage, , Post-, Recent Major Trauma Past Medical History Reviewed: Historical Data, Nursing Documentation, Vital Signs Vital Signs: Last Vital Signs Temp 97.9 F 02/10/17 05:08 Pulse 65 02/10/17 05:08 Resp 16 02/10/17 05:08 BP 139/81 02/10/17 05:08 Pulse Ox 98 02/10/17 05:18 - Medical History PMH: Anxiety, Asthma, Atrial Fibrillation, Bronchitis, CVA (2 years ago, no residual defecits), Depression, Deep Vein Thrombosis, Gastritis, GERD, Pulmonary Embolism, TIA Denies: Arthritis, CHF, COPD, Diabetes, Hepatitis, HIV, HTN, Hypercholesterolemia, Hypothyroidism, Pneumonia, Chronic Kidney Disease, Rheumatoid Arthritis, Seizures, Sexually Transmitted Disease - Surgical History Surgical History: Cholecystectomy, Tonsillectomy - Family History Family History: States: Unknown Family Hx - Immunization History Hx Tetanus Toxoid Vaccination: No Hx Influenza Vaccination: No Hx Pneumococcal Vaccination: No - Home Medications Home Medications: Ambulatory Orders Medication Instructions Recorded Dexlansoprazole [Dexilant] 60 mg PO DAILY 09/16/16 - Allergies Allergies/Adverse Reactions: Allergies Allergy/AdvReac Type Severity Reaction Status Date / Time morphine AdvReac SHORTNESS Verified 02/10/17 03:06 OF BREATH Curb-65 Severity Score - CURB-65 Severity Score Confusion: No Bun >19mg/dl (>7mmol/L): No Respiratory Rate greater than/equal to 30: No Systolic BP <90 or Diastolic BP less than/equal 60mmHg: No Age >64: No Curb-65 Score: 0 Percentage 30-day mortality: 0.6% Wells Criteria for PE - Wells Criteria for Pulmonary Embolism Clinical Signs and Symptoms of DVT: No P.E is #1 Diagnosis, or Equally Likely: No Heart Rate >100: No Immobilization at least 3 days;Surgery previous 4 weeks: No Previous, objectively diagnosed PE or DVT: Yes Hemoptysis: No Malignancy w/treatment within 6 months, or palliative: No Total Score: 1.5 Review of Systems ROS Statement: Except As Marked, All Systems Reviewed And Found Negative Constitutional: Negative for: Weakness Cardiovascular: Positive for: Chest Pain, Palpitations Gastrointestinal: Negative for: Nausea, Vomiting, Abdominal Pain, Constipation Physical Exam - Reviewed Nursing Documentation Reviewed: Yes Vital Signs Reviewed: Yes - Physical Exam Appears: Positive for: Well, Non-toxic, No Acute Distress Skin: Positive for: Normal Color, Warm, DRY Cardiovascular/Chest: Positive for: Regular Rate, Rhythm, Chest Non Tender Respiratory: Positive for: CNT, Normal Breath Sounds Neurologic/Psych: Positive for: Alert, Oriented - Laboratory Results Result Diagrams: 02/10/17 03:38 02/10/17 03:38 - ECG O2 Sat by Pulse Oximetry: 98 - Progress ED Course And Treament: pt will get CTA and cbc/cmp/trop/UA and zofran for nausea. Medical Decision Making Medical Decision Making: PT will be admitted for chest pain MD Damien made aware Pt pending CTA at time of admission Disposition - Clinical Impression Clinical Impression: Chest pain - Patient ED Disposition Is Patient to be Admitted: No - Disposition Disposition: Routine/Home Disposition Time: 05:56 Condition: STABLE
[2017-02-10] MEDS ORDERED: Iodixanol 320 MG/ML 100 ML BOTTLE IV ONE (04:37)
[2017-02-10] MEDS ORDERED: Sodium Chloride 0.9% 50 ML IV ONE (04:37)
--- NOTE | 2017-02-10 06:14 | CT ---
EXAM: CT Angiography Chest With Intravenous Contrast CLINICAL HISTORY: 46 years old, female; Pain; Chest pressure; Additional info: Chest pressure elevated d-dimer TECHNIQUE: Axial computed tomographic angiography images of the chest with intravenous contrast using pulmonary embolism protocol. This CT exam was performed using one or more of the following dose reduction techniques: automated exposure control, adjustment of the mA and/or kV according to patient size, and/or use of iterative reconstruction technique. MIP reconstructed images were created and reviewed. Coronal and sagittal reformatted images were created and reviewed. CONTRAST: 95 mL of [id number] administered intravenously. COMPARISON: CT - ANGIO CHEST PE PROTOCOL 10/13/2016 7:18:16 PM FINDINGS: Limitations: Suboptimal timing of bolus. Pulmonary arteries: No definite pulmonary embolism. Aorta: No aneurysm. No dissection. Lungs: No consolidation. Pleural space: No significant effusion. No pneumothorax. Heart: Mild cardiomegaly. No significant pericardial effusion. Bones/joints: No acute fracture. No dislocation. Soft tissues: Unremarkable. Lymph nodes: No pathologically enlarged lymph nodes. Gallbladder and bile ducts: Cholecystectomy. Other findings: Probable LEFT adenoma. IMPRESSION: 1. No definite CT evidence of pulmonary embolism. 2. Incidental/non-acute findings are described above.
[2017-02-10] MEDS ORDERED: Enoxaparin 40 mg Syringe SC SCH (09:00)
--- NOTE | 2017-02-10 11:17 | RAD ---
HISTORY: Chest pain COMPARISON: 10/13/2016. TECHNIQUE: Chest PA and lateral FINDINGS: LUNGS: No active pulmonary disease. PLEURA: No significant pleural effusion identified. No pneumothorax apparent. CARDIOVASCULAR: No radiographic findings to suggest acute or significant cardiovascular disease. OSSEOUS STRUCTURES: No significant abnormalities. VISUALIZED UPPER ABDOMEN: Normal. OTHER FINDINGS: None. IMPRESSION: No active disease. No significant interval change compared to the prior examination(s). No preliminary report provided by emergency department personnel.
[2017-02-10 11:26] LABS: THYROID STIMULATING HORMONE 3.83 mIU/ML (0.46-4.68)
[2017-02-10] MEDS ORDERED: Pneumococcal 23-Valent Vaccine IM ONE (13:00)
--- NOTE | 2017-02-10 19:53 | CP.PCM.HP ---
<Heidi Loco - Last Filed: 02/10/17 19:42> History of Present Illness - History of Present Illness History of Present Illness: This is a 46 y/o F with PMHx significant for possible PE 3 years ago as per patient report treated with prison anticoagulants, coumadin for 6-8 months? who presents to ED c/o midsternal chest pressure sensation associated to palpitations. Patient states that she was having episodes of palpitations since 1 week ago. Denies SOB, N/V, abdominal pain associated to ED presentation symptoms. Present on Admission - Present on Admission Any Indicators Present on Admission: No History of DVT/PE: Yes History of Uncontrolled Diabetes: No Urinary Catheter: No Decubitus Ulcer Present: No Review of Systems - Constitutional Constitutional: As Per HPI Past Patient History - Infectious Disease Hx of Infectious Diseases: None - Past Medical History & Family History Past Medical History?: Yes - Past Social History Smoking Status: Never Smoked - CARDIAC Hx Atrial Fibrillation: Yes Hx Congestive Heart Failure: No Hx Hypercholesterolemia: No Hx Hypertension: No - PULMONARY Hx Asthma: Yes Hx Bronchitis: Yes Hx Chronic Obstructive Pulmonary Disease (COPD): No Hx Pneumonia: No Hx Pulmonary Embolism: Yes - NEUROLOGICAL Hx Seizures: No Hx Transient Ischemic Attacks (TIA): Yes - HEENT Hx HEENT Problems: No - RENAL Hx Chronic Kidney Disease: No - ENDOCRINE/METABOLIC Hx Hypothyroidism: No - HEMATOLOGICAL/ONCOLOGICAL Hx Human Immunodeficiency Virus (HIV): No - INTEGUMENTARY Hx Dermatological Problems: No - MUSCULOSKELETAL/RHEUMATOLOGICAL Hx Arthritis: No Hx Rheumatoid Arthritis: No - GASTROINTESTINAL Hx Gastritis: Yes - GENITOURINARY/GYNECOLOGICAL Hx Sexually Transmitted Disorders: No - PSYCHIATRIC Hx Anxiety: Yes Hx Depression: Yes - SURGICAL HISTORY Hx Cholecystectomy: Yes Hx Tonsillectomy: Yes - ANESTHESIA Hx Anesthesia: Yes Hx Anesthesia Reactions: No Hx Malignant Hyperthermia: No Meds Allergies/Adverse Reactions: Allergies Allergy/AdvReac Type Severity Reaction Status Date / Time morphine AdvReac SHORTNESS Verified 02/10/17 03:06 OF BREATH Physical Exam - Constitutional Appears: No Acute Distress - Head Exam Head Exam: NORMAL INSPECTION - Eye Exam Eye Exam: Normal appearance - ENT Exam ENT Exam: Mucous Membranes Moist - Respiratory Exam Respiratory Exam: Clear to Auscultation Bilateral, NORMAL BREATHING PATTERN - Cardiovascular Exam Cardiovascular Exam: REGULAR RHYTHM, +S1, +S2 - GI/Abdominal Exam GI & Abdominal Exam: Distended (secondary to obesity), Normal Bowel Sounds, Soft. absent: Guarding, Rigid, Tenderness - Extremities Exam Extremities exam: Positive for: normal inspection. Negative for: calf tenderness, pedal edema - Neurological Exam Neurological exam: Alert, Oriented x3 - Skin Skin Exam: Dry, Intact, Normal Color Results - Vital Signs Recent Vital Signs: Last Vital Signs Temp 98.0 F 02/10/17 16:18 Pulse 68 02/10/17 18:03 Resp 20 02/10/17 18:03 BP 139/78 02/10/17 18:03 Pulse Ox 98 02/10/17 18:03 - Labs Result Diagrams: 02/10/17 03:38 02/10/17 03:38 Labs: Laboratory Results - last 24 hr 02/10/17 12:20 Troponin I < 0.0120 Assessment & Plan - Assessment and Plan (Free Text) Assessment: 46 y/o F with possible h/o PE admitted to telemetry for observation due to chest pain and palpitations. 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 f/u Venous dupplex of lower extremities f/u Cardiology consult recommendations EKG showed noacute ST/T wave changes Chest CT scan showed no definite evidence of PE CXR showed no active disease Morbid Obesity BMI 53.2 f/u lipid profile Pre-diabetes HgbA1C 6.1 healthy diet consider Metformin with DC [address] scan DVT prophylaxis Lovenox 60 meq SC daily - Date & Time Date: 02/10/17 Time: 09:40 <Inocente Quezada L - Last Filed: 02/11/17 09:49> Results - Vital Signs Recent Vital Signs: Last Vital Signs Temp 97.9 F 02/11/17 08:45 Pulse 64 02/11/17 08:45 Resp 23 02/11/17 08:45 BP 111/55 L 02/11/17 08:45 Pulse Ox 97 02/11/17 08:45 - Labs Result Diagrams: 02/10/17 03:38 02/10/17 03:38 Labs: Laboratory Results - last 24 hr 02/10/17 02/10/17 02/11/17 12:20 21:00 04:40 Troponin I < 0.0120 < 0.0120 Triglycerides 85 Cholesterol 162 LDL Cholesterol Direct 102 HDL Cholesterol 32 Assessment & Plan - Assessment and Plan (Free Text) Plan: I was present during evaluation and discussed with Dr Lcoo re plans of care an tx. Inocente Quezada M.D.
[2017-02-11 05:25] VITALS: O2SAT 97
[2017-02-11 05:37] LABS: CHOLESTEROL 162 mg/dL (0-199)
--- NOTE | 2017-02-11 07:27 | CP.PCM.CON ---
History of Present Illness - History of Present Illness History of Present Illness: patient is a 46 year old female with a history of obesity and hypertension who presents with palpitaitons. I was asked to evalaute patient for Dr. Judge. The patient reports upper throat sensation of palpitaitons. The patient states she feels like there is a sensation of tachycardia but in her throat. The patient deneis chest pain or syncope. I discussed aspects of patient's past cardiac workup with Dr. Judge. A stress test has been normal with normal left ventricular function. Review of Systems - Constitutional Constitutional: absent: As Per HPI, Anorexia, Chills, Daytime Sleepiness, Excessive Sweating, Fatigue, Fever, Frequent Falls, Headache, Increased Appetite , Lethargy, Malaise, Night Sweats, Snoring, Sleep Apnea, Weight Gain, Weight Loss, Weakness, Other - EENT Eyes: absent: As Per HPI, Blind Spots, Blurred Vision, Change in Vision, Decreased Night Vision, Diplopia, Discharge, Dry Eye, Exophthalmos, Floaters, Irritation, Itchy Eyes, Loss of Peripheral Vision, Pain, Photophobia, Requires Corrective Lenses, Sees Flashes, Spots in Vision, Tunnel Vision, Other Visual Disturbances, Loss of Vision, Other Ears: absent: As Per HPI, Decreased Hearing, Ear Discharge, Ear Pain, Tinnitus, Abnormal Hearing, Disequilibrium, Dizziness, Other Nose/Mouth/Throat: absent: As Per HPI, Epistaxis, Nasal Congestion, Nasal Discharge, Nasal Obstruction, Nasal Trauma, Nose Pain, Post Nasal Drip, Sinus Pain, Sinus Pressure, Bleeding Gums, Change in Voice, Dental Pain, Dry Mouth, Dysphagia, Halitosis, Hoarsness, Lip Swelling, Mouth Lesions, Mouth Pain, Odynophagia, Sore Throat, Throat Swelling, Tongue Swelling, Facial Pain, Neck Pain, Neck Mass, Other - Cardiovascular Cardiovascular: Palpitations - Respiratory Respiratory: absent: As Per HPI, Cough, Dyspnea, Hemoptysis, Dyspnea on Exertion , Wheezing, Snoring, Stridor, Pain on Inspiration, Chest Congestion, Excessive Mucous Production, Change in Mucous Color, Pain with Coughing, Other - Gastrointestinal Gastrointestinal: absent: As Per HPI, Abdominal Pain, Belching, Bloating, Change in Bowel Habits, Change in Stool Character, Coffee Ground Emesis, Constipation, Cramping, Diarrhea, Dyspepsia, Dysphagia, Early Satiety, Excessive Flatus, Fecal Incontinence, Heartburn, Hematemesis, Hematochezia, Loose Stools, Melena, Nausea, Odynophagia, Temesmus, Vomiting, Other - Genitourinary Genitourinary: absent: As Per HPI, Change in Urinary Stream, Difficulty Urinating, Dysuria, Flank Pain, Hematuria, Pyuria, Nocturia, Urinary Incontinence, Urinary Frequency, Urinary Hesitance, Urinary Urgency, Voiding Freq/Small Amts, Freq UTI, Hx Renal/Bladder Calculi, Hx /Renal Surgery, Bladder Distension, Other - Integumentary Integumentary: absent: As Per HPI, Acne, Alopecia, Bleeding Lesions, Change in Hair, Change in Nails, Change in Pigmentation, Changing Lesions, Dry Skin, Erythema, Furuncle, Hirsutism, Lesions, New Lesions, Non-Healing Lesions, Photosensitivity, Pruritus, Rash, Skin Pain, Skin Ulcer, Sores, Striae, Swelling , Unusual Bruising, Wounds, Jaundice, Other - Neurological Neurological: absent: As Per HPI, Abnormal Gait, Abnormal Hearing, Abnormal Movements, Abnormal Speech, Behavioral Changes, Burning Sensations, Confusion, Convulsions, Disequilibrium, Dizziness, Numbness, Focal Weakness, Frequent Falls , Headaches, Lack of Coordination, Loss of Vision, Memory Loss, Paresthesias, Radicular Pain, Restless Legs, Sensory Deficit, Syncope, Tingling, Tremor, Vertigo, Weakness, Other Visual Disturbances, Other - Psychiatric Psychiatric: absent: As Per HPI, Abnormal Sleep Pattern, Anhedonia, Anxiety, Auditory Hallucinations, Behavioral Changes, Change in Appetite, Change in Libido, Confusion, Depression, Difficulty Concentrating, Hallucinations, Homicidal Ideation, Hopelessness, Irritability, Memory Loss, Mood Swings, Panic Attacks, Paranoia, Suicidal Ideation, Visual Hallucinations, Tactile Hallucinations, Other - Endocrine Endocrine: absent: As Per HPI, Change in Body Appearance, Change in Libido, Cold Intolorance, Deepening of Voice, Excessive Sweating, Fatigue, Flushing, Heat Intolorance, Increase in Ring/Shoe/Hat Size, Palpitations, Polydipsia, Polyphagia, Polyuria, Other - Hematologic/Lymphatic Hematologic: absent: As Per HPI, Easy Bleeding, Easy Bruising, Lymphadenopathy, Other Past Patient History - Infectious Disease Hx of Infectious Diseases: None - Past Medical History & Family History Past Medical History?: Yes - Past Social History Smoking Status: Never Smoked - CARDIAC Hx Atrial Fibrillation: Yes Hx Congestive Heart Failure: No Hx Hypercholesterolemia: No Hx Hypertension: No - PULMONARY Hx Asthma: Yes Hx Bronchitis: Yes Hx Chronic Obstructive Pulmonary Disease (COPD): No Hx Pneumonia: No Hx Pulmonary Embolism: Yes - NEUROLOGICAL Hx Seizures: No Hx Transient Ischemic Attacks (TIA): Yes - HEENT Hx HEENT Problems: No - RENAL Hx Chronic Kidney Disease: No - ENDOCRINE/METABOLIC Hx Hypothyroidism: No - HEMATOLOGICAL/ONCOLOGICAL Hx Human Immunodeficiency Virus (HIV): No - INTEGUMENTARY Hx Dermatological Problems: No - MUSCULOSKELETAL/RHEUMATOLOGICAL Hx Arthritis: No Hx Rheumatoid Arthritis: No - GASTROINTESTINAL Hx Gastritis: Yes - GENITOURINARY/GYNECOLOGICAL Hx Sexually Transmitted Disorders: No - PSYCHIATRIC Hx Anxiety: Yes Hx Depression: Yes - SURGICAL HISTORY Hx Cholecystectomy: Yes Hx Tonsillectomy: Yes - ANESTHESIA Hx Anesthesia: Yes Hx Anesthesia Reactions: No Hx Malignant Hyperthermia: No Meds Allergies/Adverse Reactions: Allergies Allergy/AdvReac Type Severity Reaction Status Date / Time morphine AdvReac SHORTNESS Verified 02/10/17 03:06 OF BREATH - Medications Medications: Current Medications Aspirin (Aspirin Chewable) 81 mg PO DAILY [facility] Last Admin: 02/10/17 08:33 Dose: 81 mg Enoxaparin Sodium (Lovenox) 60 mg SC DAILY [facility] PRN Reason: Protocol Lorazepam (Ativan) 0.5 mg PO BID [facility] Last Admin: 02/10/17 16:28 Dose: 0.5 mg Physical Exam - Constitutional Appears: Non-toxic - Head Exam Head Exam: NORMAL INSPECTION - Eye Exam Eye Exam: Normal appearance - ENT Exam ENT Exam: Mucous Membranes Moist - Neck Exam Neck exam: Positive for: Full Rom - Respiratory Exam Respiratory Exam: NORMAL BREATHING PATTERN - Cardiovascular Exam Cardiovascular Exam: REGULAR RHYTHM - GI/Abdominal Exam GI & Abdominal Exam: Normal Bowel Sounds - Extremities Exam Extremities exam: Positive for: pedal edema - Back Exam Back exam: NORMAL INSPECTION - Neurological Exam Neurological exam: Alert, Oriented x3 - Psychiatric Exam Psychiatric exam: Normal Affect - Skin Skin Exam: Normal Color Results - Vital Signs Recent Vital Signs: Last Vital Signs Temp 98.8 F 02/11/17 05:00 Pulse 61 02/11/17 05:00 Resp 17 02/11/17 05:00 BP 112/57 L 02/11/17 05:00 Pulse Ox 97 02/11/17 05:00 - Labs Result Diagrams: 02/10/17 03:38 02/10/17 03:38 Labs: Laboratory Results - last 24 hr 02/10/17 02/10/17 02/11/17 12:20 21:00 04:40 Troponin I < 0.0120 < 0.0120 Triglycerides 85 Cholesterol 162 LDL Cholesterol Direct 102 HDL Cholesterol 32 - EKG Data EKG Interpreted by: Myself Assessment & Plan (1) Palpitations Assessment and Plan: 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 There was no evidence of arrhythmia. Symptoms appear noncardiac. recommend continued risk factor modification. Status: Acute - Date & Time Date: 02/10/17 Time: 16:00
[2017-02-11] MEDS ORDERED: Enoxaparin 60 mg Syringe SC SCH (09:00)
--- NOTE | 2017-02-11 09:53 | CP.PCM.DIS ---
Provider - Provider Date of Admission: 02/10/17 04:25 Attending physician: Inocente Quezada MD Primary care physician: Bess Mckoy MD Time Spent in preparation of Discharge (in minutes): 30 Hospital Course - Lab Results Lab Results: Most Recent Lab Values WBC 9.8 K/uL (4.8-10.8) 02/10/17 03:38 RBC 4.53 Mil/uL (3.80-5.20) 02/10/17 03:38 Hgb 12.2 g/dL (12.0-16.0) 02/10/17 03:38 Hct 37.4 % (34.0-47.0) 02/10/17 03:38 MCV 82.6 fl (81.0-99.0) 02/10/17 03:38 MCH 27.0 pg (27.0-31.0) 02/10/17 03:38 MCHC 32.7 g/dL (33.0-37.0) L 02/10/17 03:38 RDW 17.0 % (11.5-14.5) H 02/10/17 03:38 Plt Count 221 K/uL (130-400) 02/10/17 03:38 MPV 11.3 fl (7.2-11.7) 02/10/17 03:38 Neut % (Auto) 63.5 % (50.0-75.0) 02/10/17 03:38 Lymph % (Auto) 21.4 % (20.0-40.0) 02/10/17 03:38 [place] % (Auto) 6.3 % (0.0-10.0) 02/10/17 03:38 Eos % (Auto) 8.1 % (0.0-4.0) H 02/10/17 03:38 Baso % (Auto) 0.7 % (0.0-2.0) 02/10/17 03:38 Neut # 6.2 K/uL (1.8-7.0) 02/10/17 03:38 Lymph # 2.1 K/uL (1.0-4.3) 02/10/17 03:38 [place] # 0.6 K/uL (0.0-0.8) 02/10/17 03:38 Eos # 0.8 K/uL (0.0-0.7) H 02/10/17 03:38 Baso # 0.1 K/uL (0.0-0.2) 02/10/17 03:38 Sodium 139 mmol/l (132-148) 02/10/17 03:38 Potassium 4.1 MMOL/L (3.6-5.0) 02/10/17 03:38 Chloride 107 mmol/L (98-107) 02/10/17 03:38 Carbon Dioxide 20 mmol/L (22-30) L 02/10/17 03:38 Anion Gap 16 (10-20) 02/10/17 03:38 BUN 18 mg/dl (7-17) H 02/10/17 03:38 Creatinine 0.6 mg/dL (0.7-1.2) L 02/10/17 03:38 Est GFR ( Amer) > 60 02/10/17 03:38 Est GFR (Non-Af Amer) > 60 02/10/17 03:38 Random Glucose 112 mg/dL (65-105) H 02/10/17 03:38 Hemoglobin A1c 6.1 % (4.2-6.5) 02/10/17 03:30 Calcium 9.1 mg/dL (8.4-10.2) 02/10/17 03:38 Total Bilirubin 0.5 mg/dl (0.2-1.3) 02/10/17 03:38 AST 28 U/L (14-36) 02/10/17 03:38 ALT 54 U/L (9-52) H 02/10/17 03:38 Alkaline Phosphatase 64 U/L (38-126) 02/10/17 03:38 Troponin I < 0.0120 ng/mL (0.00-0.120) 02/10/17 21:00 Total Protein 7.2 G/DL (6.3-8.2) 02/10/17 03:38 Albumin 3.8 g/dL (3.5-5.0) 02/10/17 03:38 Globulin 3.4 gm/dL (2.2-3.9) 02/10/17 03:38 Albumin/Globulin Ratio 1.1 (1.0-2.1) 02/10/17 03:38 Triglycerides 85 mg/DL (0-149) 02/11/17 04:40 Cholesterol 162 mg/dL (0-199) 02/11/17 04:40 LDL Cholesterol Direct 102 mg/dL (0-129) 02/11/17 04:40 HDL Cholesterol 32 MG/DL (30-70) 02/11/17 04:40 TSH 3rd Generation 3.83 mIU/ML (0.46-4.68) 02/10/17 03:30 Urine Color Yellow (YELLOW) 02/10/17 03:49 Urine Clarity Cloudy (Clear) 02/10/17 03:49 Urine pH 6.0 (5.0-8.0) 02/10/17 03:49 Ur Specific [place] 1.026 (1.003-1.030) 02/10/17 03:49 Urine Protein 30 mg/dL (NEGATIVE) 02/10/17 03:49 Urine Glucose (UA) Neg mg/dL (Normal) 02/10/17 03:49 Urine Ketones Negative mg/dL (NEGATIVE) 02/10/17 03:49 Urine Blood Negative (NEGATIVE) 02/10/17 03:49 Urine Nitrate Negative (NEGATIVE) 02/10/17 03:49 Urine Bilirubin Negative (NEGATIVE) 02/10/17 03:49 Urine Urobilinogen 0.2-1.0 mg/dL (0.2-1.0) 02/10/17 03:49 Ur Leukocyte Esterase Trace Fred/uL (Negative) 02/10/17 03:49 Urine RBC (Auto) 3 /hpf (0-3) 02/10/17 03:49 Urine Microscopic WBC 7 /hpf (0-5) H 02/10/17 03:49 Ur Squamous Epith Cells 11 /hpf (0-5) H 02/10/17 03:49 - Hospital Course Hospital Course: This is a 46 y/o female with hx of Pulm embolism in the past was admitted for chest pain and palpitations. She was monitored and labs showed normal troponin and EKG. Monitor did not reveal any form of arrhythmia. Cardiology was consulted She was noted to have A1c of 6.1 She was started on Metformin and wellbutrin and was sent home on stable condition. Discharge Exam - Head Exam Head Exam: NORMAL INSPECTION - Eye Exam Eye Exam: Normal appearance - Respiratory Exam Respiratory Exam: NORMAL BREATHING PATTERN - Cardiovascular Exam Cardiovascular Exam: REGULAR RHYTHM - GI/Abdominal Exam GI & Abdominal Exam: Normal Bowel Sounds - Neurological Exam Neurological exam: CN II-XII Intact, Oriented x3 - Psychiatric Exam Psychiatric exam: Anxious Discharge Plan - Follow Up Plan Condition: STABLE Disposition: HOME/ ROUTINE Additional Instructions: follow up in 1 to 2 weeks discussed metformin and well butrin. advised weight reduction. Referrals: Bess Mckoy MD [Primary Care Provider] -
[2017-02-11 12:31] VITALS: BP 126/73; PULSE 62; RESP 18; TEMP 97
--- NOTE | 2017-02-11 13:12 | US ---
PROCEDURE: Bilateral lower extremity venous duplex Doppler. HISTORY: SOB and h/o PE COMPARISON: None available. TECHNIQUE: Bilateral common femoral, superficial femoral, popliteal and posterior tibial veins were evaluated. Flow was assessed with color Doppler, compressibility, assessment of phasic flow and augmentation response. FINDINGS: COMMON FEMORAL VEIN: Right CFV: Unremarkable. Left CFV: Unremarkable. SUPERFICIAL FEMORAL VEIN: Right SFV: Unremarkable. Left SFV: Unremarkable. POPLITEAL VEIN: Right Popliteal: Unremarkable. Left Popliteal: Unremarkable. POSTERIOR TIBIAL VEIN: Right PTV: Not well-visualized. Left PTV: Not well-visualized. OTHER FINDINGS: None. IMPRESSION: No evidence of deep venous thrombosis. Suboptimal visualization of the posterior tibial veins bilaterally.
--- NOTE | 2017-02-11 18:15 | CARD ---
APPROVED REPORT EKG Measurement Heart [id number] <Conclusion> Normal sinus rhythm Minimal voltage criteria for LVH, may be normal variant Borderline ECG
== END 2017-02-11 13:30 | disposition home or self-care (01) ==
LOC: H.ER 02:51 → H.ERHOLD 04:25 → H.ICU/CCU 05:05
PROVIDERS: ADMIT Family Medicine; ATTEND Family Medicine
DX: R07.89 Other chest pain (principal); R00.2 Palpitations; Z23 Encounter for immunization; Z86.73 Personal history of transient ischemic attack (TIA), and cerebral infarction without residual deficits; I10 Essential (primary) hypertension; I48.91 Unspecified atrial fibrillation; Z86.711 Personal history of pulmonary embolism; J45.909 Unspecified asthma, uncomplicated; F41.9 Anxiety disorder, unspecified; F32.9 Major depressive disorder, single episode, unspecified; Z86.718 Personal history of other venous thrombosis and embolism; K29.70 Gastritis, unspecified, without bleeding; K21.9 Gastro-esophageal reflux disease without esophagitis; E66.01 Morbid (severe) obesity due to excess calories; Z68.43 Body mass index [BMI] 50.0-59.9, adult; R73.03 Prediabetes; Z88.5 Allergy status to narcotic agent
CPT/HCPCS: 71020; 71275; 80053; 80061; 81003; 83036; 84443; 84484; 85025; 87081; 90732; 93005; 93970; 96374; 99283; G0009; G0378; J1650; J2405; Q9967

== ENCOUNTER 2017-02-18 17:57 | Emergency (ER) | payer MEDICAID, MEDICARE ==
[2017-02-18 17:57] VITALS: BMI 53.1
[2017-02-18 18:15] VITALS: BP 156/71; PULSE 75; RESP 18; TEMP 99.6; O2SAT 100
[2017-02-18] MEDS ORDERED: Oxycodone/Acetaminophen 5/325 mg Tab PO STA (19:36)
--- NOTE | 2017-02-18 19:41 | ED PDOC ---
HPI: Eye Injury/Pain Time Seen by Provider: 02/18/17 18:51 Chief Complaint (Nursing): Eye Problem Chief Complaint (Provider): Left eye, left facial pain History Per: Patient History/Exam Limitations: no limitations Onset/Duration Of Symptoms: Days (3) Current Symptoms Are (Timing): Still Present Injury To Eye?: No Severity: Severe Pain Scale Rating Of: 9 Description Of Pain/Injury (Context): No injury Quality: Dull Wears Contact Lens?: No Associated Symptoms: FB Sensation. denies: Discharge From Eye Additional Complaint(s): Pt states for 3 days she has been having left eye pain and left facial pain. Pt did not take medications at home. Pt denies injury. Pt denies drainage from the eye. Past Medical History Reviewed: Historical Data, Nursing Documentation, Vital Signs Vital Signs: Last Vital Signs Temp 99.6 F 02/18/17 18:13 Pulse 75 02/18/17 18:13 Resp 18 02/18/17 18:13 BP 156/71 H 02/18/17 18:13 Pulse Ox 100 02/18/17 18:13 - Medical History PMH: Anxiety, Asthma, Atrial Fibrillation, Bronchitis, CVA (2 years ago, no residual defecits), Depression, Deep Vein Thrombosis, Fractures, Gastritis, GERD , Pulmonary Embolism, TIA Denies: Arthritis, CHF, COPD, Diabetes, Hepatitis, HIV, HTN, Hypercholesterolemia, Hypothyroidism, Pneumonia, Chronic Kidney Disease, Rheumatoid Arthritis, Seizures, Sexually Transmitted Disease - Surgical History Surgical History: Cholecystectomy, Tonsillectomy - Family History Family History: States: Unknown Family Hx - Living Arrangements Living Arrangements: With Family - Social History Current smoker - smoking cessation education provided: No Alcohol: None Drugs: Denies - Immunization History Hx Tetanus Toxoid Vaccination: No Hx Influenza Vaccination: No Hx Pneumococcal Vaccination: No - Home Medications Home Medications: Ambulatory Orders Medication Instructions Recorded Aspirin [Aspirin Chewable] 81 mg PO DAILY #30 02/11/17 buPROPion SR [Wellbutrin SR 150 MG] 150 mg PO DAILY #30 tab 02/11/17 metFORMIN [glucOPHAGE] 500 mg PO BID #60 tab 02/11/17 traMADol [Ultram] 50 mg PO Q6H PRN #15 tab 02/18/17 - Allergies Allergies/Adverse Reactions: Allergies Allergy/AdvReac Type Severity Reaction Status Date / Time morphine AdvReac SHORTNESS Verified 02/10/17 03:06 OF BREATH Review of Systems ROS Statement: Except As Marked, All Systems Reviewed And Found Negative Constitutional: Negative for: Fever, Chills ENT: Positive for: Other (Eye pain, left facial pain ) Physical Exam - Reviewed Nursing Documentation Reviewed: Yes Vital Signs Reviewed: Yes - Physical Exam Appears: Positive for: Well, Non-toxic, No Acute Distress Head Exam: Positive for: ATRAUMATIC, NORMAL INSPECTION, NORMOCEPHALIC Skin: Positive for: Normal Color, Warm, DRY Eye Exam: Positive for: Normal appearance, EOMI, PERRL, Other (No abrasions ) ENT: Positive for: Normal ENT Inspection Neck: Positive for: Normal, Painless ROM Cardiovascular/Chest: Positive for: Regular Rate, Rhythm Respiratory: Positive for: CNT, Normal Breath Sounds Back: Positive for: Normal Inspection Extremity: Positive for: Normal ROM Neurologic/Psych: Positive for: 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 Negative for: Motor/Sensory Deficits, Aphasia, Facial Droop - ECG O2 Sat by Pulse Oximetry: 100 Disposition - Clinical Impression Clinical Impression: Eye pain - Patient ED Disposition Is Patient to be Admitted: No - Disposition Disposition: Routine/Home Disposition Time: 20:13 Condition: GOOD Prescriptions: traMADol [Ultram] 50 mg PO Q6H PRN #15 tab PRN Reason: Pain Instructions: Eye Pain (ED)
== END 2017-02-18 20:30 | disposition home or self-care (01) ==
LOC: H.ER 17:57
DX: H57.12 Ocular pain, left eye (principal)

== ENCOUNTER 2017-09-08 09:16 | Emergency (ER) | payer MEDICAID, MEDICARE ==
[2017-09-08 09:17] VITALS: BMI 53.4
[2017-09-08 09:25] VITALS: BP 118/77; PULSE 69; RESP 20; TEMP 98.5; O2SAT 98
--- NOTE | 2017-09-08 09:39 | ED PDOC ---
HPI: General Adult Time Seen by Provider: 09/08/17 09:34 Chief Complaint (Nursing): Headache Chief Complaint (Provider): facial pain History Per: Patient Additional Complaint(s): 47-year-old female presents with right ear pain starting yesterday that radiates to right jaw region. The patient has facial pain but denies numbness, facial droop or speech changes. Patient's also has ringing sensation to right ear. She denies hearing loss. No fever or chills. No vision changes. Patient denies dizziness, nausea or vomiting. Patient also denies chest pain, shortness of breath or dyspnea on exertion. Past Medical History Reviewed: Historical Data, Nursing Documentation, Vital Signs Vital Signs: Last Vital Signs Temp 98.5 F 09/08/17 09:23 Pulse 69 09/08/17 09:23 Resp 20 09/08/17 09:23 BP 118/77 09/08/17 09:23 Pulse Ox 98 09/08/17 09:39 - Medical History PMH: Anxiety, Asthma, Atrial Fibrillation, Depression, Deep Vein Thrombosis, Gastritis, GERD, Pulmonary Embolism, TIA - Surgical History Surgical History: Cholecystectomy, Tonsillectomy - Family History Family History: States: No Known Family Hx - Living Arrangements Living Arrangements: With Family - Social History Current smoker - smoking cessation education provided: No Alcohol: None Drugs: Denies - Home Medications Home Medications: Ambulatory Orders Medication Instructions Recorded Aspirin [Aspirin Chewable] 81 mg PO DAILY #30 02/11/17 buPROPion SR [Wellbutrin SR 150 MG] 150 mg PO DAILY #30 tab 02/11/17 metFORMIN [glucOPHAGE] 500 mg PO BID #60 tab 02/11/17 traMADol [Ultram] 50 mg PO Q6H PRN #15 tab 02/18/17 Dicyclomine [Bentyl] 20 mg PO BID PRN #30 tab 05/14/17 Amoxicillin/Clavulanate [Augmentin 1 tab PO BID #14 tab 09/08/17 875 MG-125 MG] Ibuprofen [Motrin Tab] 800 mg PO Q8 PRN #20 tab 09/08/17 - Allergies Allergies/Adverse Reactions: Allergies Allergy/AdvReac Type Severity Reaction Status Date / Time morphine AdvReac SHORTNESS Verified 02/10/17 03:06 OF BREATH Review of Systems ROS Statement: Except As Marked, All Systems Reviewed And Found Negative Constitutional: Negative for: Fever, Chills, Weakness ENT: Positive for: Ear Pain (right), Other (right side facial pain/jaw pain). Negative for: Ear Discharge, Throat Pain Cardiovascular: Negative for: Chest Pain, Palpitations, Light Headedness Respiratory: Negative for: Cough, Shortness of Breath Gastrointestinal: Negative for: Nausea, Vomiting Neurological: Negative for: Weakness, Numbness, Incoordination, Change in Speech , Confusion, Seizures, Altered Mental Status, Headache, Dizziness Physical Exam - Reviewed Nursing Documentation Reviewed: Yes Vital Signs Reviewed: Yes - Physical Exam Appears: Positive for: Well, Non-toxic, No Acute Distress Skin: Negative for: Rash Eye Exam: Positive for: Normal appearance, EOMI, PERRL ENT: Positive for: Other (Left ear within normal limits, right ear demonstrates erythematous canal with no edema or exudate, bulging tympanic membrane with obscured landmarks, no perforation or rupture). Negative for: Nasal Congestion , Pharyngeal Erythema Neck: Positive for: Normal Cardiovascular/Chest: Positive for: Regular Rate, Rhythm Respiratory: Positive for: Normal Breath Sounds Neurologic/Psych: Positive for: Alert, rn rehab II-XII (grossly intact), Oriented, Gait (steady). Negative for: Motor/Sensory Deficits, Aphasia, Facial Droop - ECG O2 Sat by Pulse Oximetry: 98 Pulse Ox Interpretation: Normal Medical Decision Making Medical Decision Making: Impression: Right otitis media Plan: IM toradol Patient reports improvement pain after Toradol was given. Prescriptions provided for Augmentin and Motrin. Patient was instructed to follow up with primary doctor in 2-3 days. Disposition - Clinical Impression Clinical Impression: Right otitis media - Patient ED Disposition Is Patient to be Admitted: No Counseled Patient/Family Regarding: Diagnosis, Need For Followup, Rx Given - Disposition Referrals: [facility] [Outside] Disposition: Routine/Home Disposition Time: 10:12 Condition: STABLE Additional Instructions: Take prescription medications as directed. Follow up with primary doctor in 2-3 days. Prescriptions: Amoxicillin/Clavulanate [Augmentin 875 MG-125 MG] 1 tab PO BID #14 tab Ibuprofen [Motrin Tab] 800 mg PO Q8 PRN #20 tab PRN Reason: Pain, Moderate (4-7) Instructions: Ear Infections (Otitis Media) (DC) Forms: [employer] (Mohawk)
== END 2017-09-08 10:32 | disposition home or self-care (01) ==
LOC: SUPCPDRO 09:16 → H.ER 09:16
DX: H66.91 Otitis media, unspecified, right ear (principal); Z86.59 Personal history of other mental and behavioral disorders; J45.909 Unspecified asthma, uncomplicated; K21.9 Gastro-esophageal reflux disease without esophagitis; Z86.711 Personal history of pulmonary embolism; Z86.718 Personal history of other venous thrombosis and embolism; Z86.73 Personal history of transient ischemic attack (TIA), and cerebral infarction without residual deficits; Z88.5 Allergy status to narcotic agent; Z79.82 Long term (current) use of aspirin
CPT/HCPCS: 81025; 96372; 99284; J1885

== ENCOUNTER 2017-11-02 07:12 | Day surgery (SDC) | payer MEDICARE, OTHER ==
[2017-09-18 08:56] VITALS: BMI 53.4
[2017-11-02] MEDS ORDERED: Lactated Ringer's 500 ML IV ONE (07:33)
[2017-11-02] MEDS ORDERED: Propofol 10 mg/ml Inj (20 ML) ONE (08:57)
[2017-11-02] MEDS ORDERED: Etomidate 20 mg/10ml Inj IV ONE (08:57)
[2017-11-02 09:21] VITALS: TEMP 97.3; O2SAT 100
[2017-11-02 09:45] VITALS: BP 124/65; PULSE 65; RESP 20
== END 2017-11-02 09:44 | disposition home or self-care (01) ==
LOC: H.ENDO 07:12
PROVIDERS: ATTEND Internal Medicine Gastroenterology
DX: R10.13 Epigastric pain (principal); K44.9 Diaphragmatic hernia without obstruction or gangrene; K31.9 Disease of stomach and duodenum, unspecified; J45.909 Unspecified asthma, uncomplicated; Z86.711 Personal history of pulmonary embolism; G47.30 Sleep apnea, unspecified; K29.50 Unspecified chronic gastritis without bleeding
CPT/HCPCS: 43239; 88305; J2001; J2704; J7120

== ENCOUNTER 2018-01-04 08:13 | Emergency (ER) | payer MEDICARE, OTHER ==
[2018-01-04 08:18] VITALS: BMI 53.1
--- NOTE | 2018-01-04 09:05 | ED PDOC ---
HPI: General Adult Time Seen by Provider: 01/04/18 08:35 Chief Complaint (Nursing): Flu-like Symptoms History Per: Patient Onset/Duration Of Symptoms: Days (3) Current Symptoms Are (Timing): Still Present Severity: Mild Additional Complaint(s): Bodyacjhes, chills and cold sweats x 3 days. Increased urinary frequency but denies dysuria. Nausea, no vomiting or diarrhea. Denies cough or sore throat. 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), Depression, Deep Vein Thrombosis, Fractures, Gastritis, GERD , Pulmonary Embolism, Sleep Apnea, TIA Denies: Arthritis, CHF, COPD, Diabetes, Hepatitis, HIV, HTN, Hypercholesterolemia, Hypothyroidism, Pneumonia, Chronic Kidney Disease, Rheumatoid Arthritis, Seizures, Sexually Transmitted Disease - Surgical History Surgical History: Cholecystectomy, Tonsillectomy - Family History Family History: States: Unknown Family Hx - Immunization History Hx Tetanus Toxoid Vaccination: No Hx Influenza Vaccination: No Hx Pneumococcal Vaccination: No - Home Medications Home Medications: Ambulatory Orders Medication Instructions Recorded Aspirin [Aspirin Chewable] 81 mg PO DAILY #30 02/11/17 Sulfamethoxazole/Trimethoprim 1 tab PO BID #20 tab 01/04/18 [Bactrim DS 800 mg-160 mg] - Allergies Allergies/Adverse Reactions: Allergies Allergy/AdvReac Type Severity Reaction Status Date / Time morphine AdvReac SHORTNESS Verified 02/10/17 03:06 OF BREATH Review of Systems Constitutional: Positive for: Chills, Sweats, Malaise ENT: Negative for: Throat Pain Respiratory: Negative for: Cough Gastrointestinal: Positive for: Nausea. Negative for: Vomiting, Abdominal Pain , Diarrhea Skin: Negative for: Rash Physical Exam - Reviewed Nursing Documentation Reviewed: Yes Vital Signs Reviewed: Yes - Physical Exam Appears: Positive for: Non-toxic, No Acute Distress Head Exam: Positive for: ATRAUMATIC, NORMAL INSPECTION, NORMOCEPHALIC Skin: Positive for: Normal Color, Warm, DRY Eye Exam: Positive for: EOMI, Normal appearance, PERRL ENT: Positive for: Normal ENT Inspection Neck: Positive for: Normal, Painless ROM Cardiovascular/Chest: Positive for: Regular Rate, Rhythm Respiratory: Positive for: CNT, Normal Breath Sounds Gastrointestinal/Abdominal: Positive for: Normal Exam, Soft Back: Positive for: Normal Inspection Extremity: Positive for: Normal ROM Neurologic/Psych: Positive for: Alert, Oriented - ECG O2 Sat by Pulse Oximetry: 96 Disposition - Clinical Impression Clinical Impression: UTI (urinary tract infection) - Patient ED Disposition Is Patient to be Admitted: No Counseled Patient/Family Regarding: Studies Performed, Diagnosis, Need For Followup, Rx Given - Disposition Referrals: [facility] [place] [Outside] Disposition: Routine/Home Disposition Time: 09:15 Condition: FAIR Prescriptions: Sulfamethoxazole/Trimethoprim [Bactrim DS 800 mg-160 mg] 1 tab PO BID #20 tab Instructions: Urinary Tract Infection, Adult (DC) Forms: [employer] (Tai[place]ese)
[2018-01-04 09:21] VITALS: BP 126/78; PULSE 78; RESP 18; TEMP 96.5; O2SAT 98
== END 2018-01-04 09:22 | disposition home or self-care (01) ==
LOC: H.ER 08:13
DX: N39.0 Urinary tract infection, site not specified (principal); Z86.59 Personal history of other mental and behavioral disorders; J45.909 Unspecified asthma, uncomplicated; Z79.82 Long term (current) use of aspirin; Z86.711 Personal history of pulmonary embolism; Z86.718 Personal history of other venous thrombosis and embolism; Z86.73 Personal history of transient ischemic attack (TIA), and cerebral infarction without residual deficits; Z87.19 Personal history of other diseases of the digestive system; Z88.5 Allergy status to narcotic agent

== ENCOUNTER 2018-05-08 07:22 | Emergency (ER) | payer MEDICAID, MEDICARE ==
[2018-05-08 07:22] VITALS: BMI 53.1
[2018-05-08 07:28] VITALS: O2SAT 96
--- NOTE | 2018-05-08 07:44 | ED PDOC ---
Addendum entered and electronically signed by Heidi Avina RPA-C 05/10/18 14:12: Addendum Addendum: 05/10/18 14:09 Chest XR: Date of service: 05/08/2018 HISTORY: cough COMPARISON: Chest radiograph dated 02/10/2017. TECHNIQUE: Chest PA and lateral FINDINGS: LUNGS: Right lower lobe infiltrate. PLEURA: No significant pleural effusion identified. No pneumothorax apparent. CARDIOVASCULAR: No aortic atherosclerotic calcification present. Normal cardiac size. No pulmonary vascular congestion. OSSEOUS STRUCTURES: Unchanged. VISUALIZED UPPER ABDOMEN: Right upper quadrant surgical clips. OTHER FINDINGS: None. IMPRESSION: Right lower lobe infiltrate. ER notification submitted electronically. Call placed to patient who is currently at her PMD's office (Dr Ordonez). Dr Ordonez made aware of XR results by Fabrice THORNTON and states she is going to have the patient discontinue use of Amoxicillin and that she will prescribe her Levaquin. Original Note: HPI: CCC, URI, Sore Throat Time Seen by Provider: 05/08/18 07:36 History Per: Patient Onset/Duration Of Symptoms: Days (2) Current Symptoms Are (Timing): Still Present Location Of Pain: Throat Associated Symptoms: Cough, Nasal Congestion Severity: Moderate Additional Complaint(s): Cough congestion x 2 days assoc with dizziness. Denies SOB or fever. Took OTC cough meds which produced palpitations. Past Medical History Vital Signs: Last Vital Signs Temp 98.7 F 05/08/18 07:27 Pulse 84 05/08/18 07:27 Resp 17 05/08/18 07:27 BP 89/68 L 05/08/18 07:27 Pulse Ox 96 05/08/18 07:27 - Medical History PMH: Anxiety, Asthma, Atrial Fibrillation, Bronchitis, CVA (2 years ago, no residual defecits), Depression, Deep Vein Thrombosis, Fractures, Gastritis, GERD, Pulmonary Embolism, Sleep Apnea, TIA Denies: Arthritis, CHF, COPD, Diabetes, Hepatitis, HIV, HTN, Hypercholesterolemia, Hypothyroidism, Pneumonia, Chronic Kidney Disease, Rheumatoid Arthritis, Seizures, Sexually Transmitted Disease - Surgical History Surgical History: Cholecystectomy, Tonsillectomy - Family History Family History: States: Unknown Family Hx - Immunization History Hx Tetanus Toxoid Vaccination: No Hx Influenza Vaccination: No Hx Pneumococcal Vaccination: No - Home Medications Home Medications: Ambulatory Orders Medication Instructions Recorded Aspirin [Aspirin Chewable] 81 mg PO DAILY #30 02/11/17 Sulfamethoxazole/Trimethoprim 1 tab PO BID #20 tab 01/04/18 [Bactrim DS 800 mg-160 mg] Amoxicillin [Amoxil 500 mg Cap] 500 mg PO Q8 #30 cap 05/08/18 Benzonatate [Tessalon Perle] 100 mg PO Q8 #12 capsule 05/08/18 - Allergies Allergies/Adverse Reactions: Allergies Allergy/AdvReac Type Severity Reaction Status Date / Time morphine AdvReac SHORTNESS Verified 02/10/17 03:06 OF BREATH Review of Systems ENT: Positive for: Nose Congestion Cardiovascular: Positive for: Palpitations Respiratory: Positive for: Cough Physical Exam - Reviewed Nursing Documentation Reviewed: Yes Vital Signs Reviewed: Yes - Physical Exam Appears: Positive for: Non-toxic, No Acute Distress Head Exam: Positive for: ATRAUMATIC, NORMAL INSPECTION, NORMOCEPHALIC Skin: Positive for: Normal Color, Warm, DRY Eye Exam: Positive for: EOMI, Normal appearance, PERRL ENT: Positive for: Normal ENT Inspection Neck: Positive for: Normal, Painless ROM Cardiovascular/Chest: Positive for: Regular Rate, Rhythm Respiratory: Positive for: Rhonchi. Negative for: Wheezing, Respiratory Distress Gastrointestinal/Abdominal: Positive for: Normal Exam, Soft Back: Positive for: Normal Inspection Extremity: Positive for: Normal ROM Neurologic/Psych: Positive for: Alert, Oriented - ECG O2 Sat by Pulse Oximetry: 96 Disposition - Clinical Impression Clinical Impression: Bronchitis - Patient ED Disposition Is Patient to be Admitted: No Counseled Patient/Family Regarding: Studies Performed, Diagnosis, Need For Followup, Rx Given - Disposition Referrals: [facility] [Outside] Disposition: Routine/Home Disposition Time: 09:17 Condition: FAIR Prescriptions: Amoxicillin [Amoxil 500 mg Cap] 500 mg PO Q8 #30 cap Benzonatate [Tessalon Perle] 100 mg PO Q8 #12 capsule Instructions: Acute Bronchitis Print Language: KYRGYZ
[2018-05-08 08:41] VITALS: PULSE 72
[2018-05-08 09:41] VITALS: BP 111/58; RESP 16; TEMP 99.5
--- NOTE | 2018-05-08 10:47 | RAD ---
Date of service: 05/08/2018 HISTORY: cough COMPARISON: Chest radiograph dated 02/10/2017. TECHNIQUE: Chest PA and lateral FINDINGS: LUNGS: Right lower lobe infiltrate. PLEURA: No significant pleural effusion identified. No pneumothorax apparent. CARDIOVASCULAR: No aortic atherosclerotic calcification present. Normal cardiac size. No pulmonary vascular congestion. OSSEOUS STRUCTURES: Unchanged. VISUALIZED UPPER ABDOMEN: Right upper quadrant surgical clips. OTHER FINDINGS: None. IMPRESSION: Right lower lobe infiltrate. ER notification submitted electronically.
--- NOTE | 2018-05-08 16:45 | CARD ---
APPROVED REPORT Date of service: 05/08/2018 EKG Measurement Heart [id number] [id number] <Conclusion> Normal sinus rhythm Normal ECG
== END 2018-05-08 09:45 | disposition home or self-care (01) ==
LOC: H.ER 07:22
DX: J40 Bronchitis, not specified as acute or chronic (principal); J45.909 Unspecified asthma, uncomplicated; Z86.711 Personal history of pulmonary embolism; Z86.718 Personal history of other venous thrombosis and embolism; Z86.73 Personal history of transient ischemic attack (TIA), and cerebral infarction without residual deficits; Z87.19 Personal history of other diseases of the digestive system; Z88.5 Allergy status to narcotic agent; Z79.899 Other long term (current) drug therapy; Z79.82 Long term (current) use of aspirin; Z86.59 Personal history of other mental and behavioral disorders